=== PATIENT | female | born 1935 | race Two or more races ===

== ENCOUNTER 2025-01-24 20:53 | Inpatient (IN) | payer MEDICARE, OTHER ==
[~2025-01-24] VITALS: Ht 160 cm; Wt 69.5 kg
--- NOTE | 2025-01-24 21:32 | ECG ---
[facility] Test Date: 2025-01-24 Test Time: 21:18:43 Pat Name: MARJORIE VARGAS Department: [facility] ED Patient ID: [facility]-[id number] Room: 0237T Gender: F Dolly Pusher: CLARK : 1935 Requested By: KIRAN HICKS Order Number: [id number] Reading MD: Avinash Pritchard Measurements Intervals [place] Rate: 56 P: 0 NC: 0 QRS: 34 QRSD: 208 T: 74 QT: 413 QTc: 399 Interpretive Statements Atrial fibrillation Left bundle branch block Electronically Signed On 01-30-2025 10:07:04 PST by Avinash Pritchard Please click the below link to view image of tracing.
--- NOTE | 2025-01-24 21:35 | ED.PDOC ---
HPI (NEURO) HPI Comments 89-year-old female brought in by ambulance from [facility] after she had a near syncopal episode. Patient complains of some generalized weakness but otherwise no other complaints. Chief Complaint: General Weakness Time Seen by MD: 21:16 Information Source: Patient, Emergency Med Personnel Mode of Arrival: EMS Severity: Moderate, Severe Timing: Hours Duration: Since onset Past Medical History PAST MEDICAL HISTORY: AFIB, CVA Social History Smoker: Non-Smoker Alcohol: Denies ETOH Use Drugs: Denies Drug Use Constitutional: reports: fatigue, weakness Cardiovascular: reports: syncope All Other Systems: Reviewed and Negative Physical Exam Exam Comments Elderly General Appearance: Mild Distress HEENT: Normal ENT Inspection, Pharynx Normal, TMs Normal Neck: Full Range of Motion, Non-Tender, Normal, Normal Inspection Respiratory: Chest Non-Tender, Lungs Clear, No Accessory Muscle Use, No Respiratory Distress, Normal Breath Sounds Cardiovascular: Other (Irregularly irregular rhythm) Breast Exam: Deferred Gastrointestinal: No Organomegaly, Non Tender, No Pulsatile Mass, Normal Bowel Sounds, Soft Genitalia: Deferred Pelvic: Deferred Rectal: Deferred Extremities: No calf tenderness, Normal capillary refill, Normal inspection, Normal range of motion, Non-tender, No pedal edema Musculoskeletal : Apperance: Normal Neurologic: Alert, inspector hairspring truing II-XII nml as Tested, No Motor Deficits, Normal Affect, Normal Mood, No Sensory Deficits Cerebellar Function: Normal Reflexes: Normal Skin: Dry, Normal Color, Warm Lymphatic: No Adenopathy EKG EKG : Cardiac Rhythm: Aflutter Was a procedure done? Was a procedure done?: No Differential Diagnosis (SZ) Seizure: Psychogenic Seizure, Alcohol Withdrawl, Anticonvulsant Withdrawl, Closed Head Injury, CVA/TIA, Drug Ingestion, Hypocalcemia, Hypoglycemia, Hyponatremia, Hypoxemia, Idiopathic, Mass Lesion, Syncope, Encephalopathy, Other X-Ray, Labs, Meds, VS Vital Signs Date Time Temp Pulse Resp B/P (MAP) Pulse Ox O2 Delivery O2 Flow Rate FiO2 01/24/25 21:18 56 01/24/25 21:00 98.7 70 20 175/75 97 98.7 Lab Test 01/24/25 22:45 01/24/25 21:55 01/24/25 21:53 Range/Units Troponin I High Sensitivity Pending 71 *H </=34 ng/L Urine Color Pending Urine Clarity Pending Urine pH Pending Urine Specific [place] Pending Urine Protein Pending Urine Ketones Pending Urine Blood Pending Urine Nitrite Pending Urine Bilirubin Pending Urine Urobilinogen Pending Urine Leukocyte Esterase Pending Urine RBC Pending Urine Microscopic WBC Pending Urine Squamous Epithelial Cells Pending Urine Bacteria Pending Urine Glucose Pending White Blood Count 9.4 4.4-10.8 10^3/uL Red Blood Count 4.39 4.0-5.20 10^6/uL Hemoglobin 14.0 12.2-16.2 g/dL Hematocrit 40.8 36.0-46.0 % Mean Corpuscular Volume 92.9 80.0-100.0 fL Mean Corpuscular Hemoglobin 31.9 28.0-32.0 pg Mean Corpuscular Hemoglobin Concent 34.4 32.0-36.0 g/dL Red Cell Distribution Width 13.2 11.8-14.3 % Platelet Count 189 140-450 10^3/uL Mean Platelet Volume 9.3 6.9-10.8 fL Neutrophils (%) (Auto) 64.8 37.0-80.0 % Lymphocytes (%) (Auto) 23.8 10.0-50.0 % Monocytes (%) (Auto) 6.7 0.0-12.0 % Eosinophils (%) (Auto) 3.6 0.0-7.0 % Basophils (%) (Auto) 1.1 0.0-2.0 % Neutrophils # (Auto) 6.1 1.6-8.6 10 ^3/uL Lymphocytes # (Auto) 2.2 0.4-5.4 10 ^3/uL Monocytes # (Auto) 0.6 0-1.3 10 ^3/uL Eosinophils # (Auto) 0.3 0-0.8 10 ^3/uL Basophils # (Auto) 0.1 0-0.2 10 ^3/uL Nucleated Red Blood Cells 0.0 % Sodium Level 139 136-145 mmol/L Potassium Level 4.3 3.5-5.1 mmol/L Chloride Level 103 98-107 mmol/L Carbon Dioxide Level 27 20-31 mmol/L Anion Gap 9 5-15 Blood Urea Nitrogen 13 9-23 mg/dL Creatinine 0.81 0.550-1.02 mg/dL Glomerular Filtration Rate Calc 70 >90 mL/min BUN/Creatinine Ratio 16.0 10.0-20.0 Serum Glucose 101 74-106 mg/dL Calcium Level 9.4 8.7-10.4 mg/dL Magnesium Level 2.2 1.6-2.6 mg/dL Total Bilirubin 0.4 0.2-1.0 mg/dL Aspartate Amino Transferase (AST) 17 13-40 U/L Alanine Aminotransferase (ALT) 13 7-40 U/L Alkaline Phosphatase 85 46-116 U/L B-Type Natriuretic Peptide 21.84 0-100 pg/mL Total Protein 7.3 5.7-8.2 g/dL Albumin 4.5 3.2-4.8 g/dL Time of 1ST Reevaluation: 21:34 Reevaluation 1ST: Unchanged Patient Education/Counseling: Diagnosis, Treatment Family Education/Counseling: No Family Present Departure 1 Departure Time of Disposition: 23:13 Impression: Primary Impression: Syncope Additional Impression: Atrial flutter Disposition: ADMITTED INPATIENT Admit to: Tele Condition: Guarded Comments 89-year-old female had a brief syncopal episode while at [facility]. Her EKG shows what looks like atrial flutter with a controlled rate. P waves are quite impr essively large. It is a strange looking EKG and I think the patient should be on a oracle dba and possibly get an echo and further cardiac workup. Critical Care Note Critical Care Time?: Yes (35 min-critical care time only) Critical care comment: Total critical care time: Approximately 36 minutes Due to a high probability of clinically significant, life threatening deterioration, the patient required my highest level of preparedness to intervene emergently and I personally spent this critical care time directly and personally managing the patient. This critical care time included obtaining a history; examining the patient; pulse oximetry; ordering and review of studies; arranging urgent treatment with development of a management plan; evaluation of patient's response to treatment; frequent reassessment; and, discussions with other providers. This critical care time was performed to assess and manage the high probability of imminent, life-threatening deterioration that could result in multi-organ failure. It was exclusive of separately billable procedures and treating other p atients. Stability Stability form required: No Heart Score Heart Score: Heart Score Response (Comments) Value History Slightly Suspicious 0 EKG Repolarization Disturb 1 Age >65 2 Risk Factors 1 or 2 risk factors 1 Troponin Normal limit 0 Total 4 KIRAN HICKS MD Jan 24, 2025 21:35
--- NOTE | 2025-01-24 21:57 | DVH ---
EXAM: XY CHEST PORTABLE HISTORY: sob TECHNIQUE: 1 view of the chest COMPARISON: None FINDINGS/IMPRESSION: LUNGS: No pleural effusion, consolidation, or pneumothorax. MEDIASTINUM: Unremarkable. BONES: No acute osseous abnormality. OTHER: None.
[2025-01-24 22:12] LABS: Hematocrit 40.8 % (36.0-46.0); Hemoglobin 14.0 g/dL (12.2-16.2); Mean Corpuscular Hemoglobin 31.9 pg (28.0-32.0); Mean Corpuscular Volume 92.9 fL (80.0-100.0); Nucleated Red Blood Cells % 0.0 %
--- NOTE | 2025-01-24 22:17 | DVH ---
CLINICAL HISTORY: syncope weakness TECHNIQUE: Helical imaging carried out from skull base to vertex without intravenous contrast. This exam was performed according to our departmental dose optimization program. Up-to-date CT equipment and radiation dose reduction techniques are utilized as appropriate. CTDIVol: 51.05 mGy DLP: 755.91 mGy-cm WID: COMPARISON: None FINDINGS: Mild cerebral volume loss with concordant prominence of the subarachnoid spaces and ventricles. There is no midline shift or mass effect. The ledbetter white matter interfaces are maintained. The basal cisterns are patent. There is no evidence of acute intracranial hemorrhage or extra-axial fluid collection. The mastoid air cells and visualized paranasal sinuses are well-aerated. IMPRESSION: 1. No acute intracranial abnormality.
[2025-01-24 22:28] LABS: Alanine Aminotransferase 13 U/L (7-40); Albumin 4.5 g/dL (3.2-4.8); Alkaline Phosphatase 85 U/L (46-116); Anion Gap 9 (5-15); BUN/Creatinine Ratio 16.0 (10.0-20.0); Bilirubin, Total 0.4 mg/dL (0.2-1.0); Blood Urea Nitrogen 13 mg/dL (9-23); Calcium 9.4 mg/dL (8.7-10.4); Carbon Dioxide 27 mmol/L (20-31); Chloride 103 mmol/L (98-107); Glucose 101 mg/dL (74-106); Magnesium 2.2 mg/dL (1.6-2.6); Potassium 4.3 mmol/L (3.5-5.1); Sodium 139 mmol/L (136-145); Total Protein 7.3 g/dL (5.7-8.2)
[2025-01-24 23:26] LABS: Urine Protein, UAD Negative (Negative)
[2025-01-25] VITALS (14 sets, daily range): BP systolic 114–151; BP diastolic 44–76; PULSE 49–78; RESP 11–18; TEMP 96.9–98.2; O2SAT 91–97
[2025-01-25] MEDS ORDERED: ONDANSETRON HCL 4 MG/2 ML VIAL IV PRN (00:30)
[2025-01-25] MEDS ORDERED: HEPARIN SODIUM (PORCINE) 5000 UNITS/ML 1ML VIAL IV ONE (00:30)
[2025-01-25] MEDS ORDERED: HEPARIN DRIP/D5W 100UNITS/ML 250 ML IV SCH (00:30)
--- NOTE | 2025-01-25 00:33 | ECG ---
[facility] Test Date: 2025-01-25 Test Time: 00:31:46 Pat Name: MARJORIE VARGAS Department: [facility] ED Patient ID: [facility]-[id number] Room: 0237T Gender: F Cvicu Rn: CLARK : 1935 Requested By: KIRAN HICKS Order Number: [id number] Reading MD: Avinash Pritchard Measurements Intervals [place] Rate: 56 P: 67 DE: 191 QRS: 59 QRSD: 92 T: -32 QT: 391 QTc: 378 Interpretive Statements Sinus rhythm Borderline repolarization abnormality Borderline ST elevation, lateral leads Electronically Signed On 01-30-2025 10:07:23 PST by Avinash Pritchard Please click the below link to view image of tracing.
--- NOTE | 2025-01-25 01:11 | DVHHPRES ---
History of Present Illness Resident Creating Document: EDURAD KOTHARI RESIDENT History of Present Illness 89-year-old female with a PMH of hypothyroidism, hyperlipidemia has come to the ER with chief complaints of dizziness. Patient reports that she was at [employer] sitting down today when she suddenly felt lightheaded, dizzy and like she would pass out. She reports she saw bright lights in her head began to hurt starting from the temporal region slowly moving back to the occiput and neck. She rates the pain as 4/10, dull, with no relieving or aggravating factors and has been constant throughout the day. She denies any nausea, vomiting, fever, chills, palpitations, chest pain or shortness of breath. On inquiry, she reports she has had a similar episode 3 months ago when she was in a convenience store and she drank water which helped back then. Today she also reports of feeling emotionally distressed as it is the day anniversary of her son who 7 years ago. Patient has also begun herbal medication 2 weeks ago for hyperlipidemia, but can not recall the names of it. On admission her blood pressure was 175/75, HR 53, temp 98.7, SpO2 97 in room air, RR 16. CT head and chest x-ray are normal, UA is negative and tropes are uptrending 71, 276. She denies any chest pain. We are admitting her for further workup and management. PMH: Hypothyroidism, hyperlipidemia PSH: hysterectomy Family history: Reviewed, noncontributory to the management of this case Social history: Patient lives with . Denies smoking, alcohol or illicit drug abuse Allergies: None PCP: code status: Full code Review of Systems Constitutional: No: Fever, Chills, Sweats, Weakness, Malaise, Other Eyes: No: Pain, Vision change, Conjunctivae inflammation, Eyelid inflammation, Other, Redness ENT: No: Ear pain, Ear discharge, Nose pain, Nose discharge, Nose congestion, Mouth pain, Mouth swelling, Throat pain, Throat swelling, Other Respiratory: No: Cough, Dry, Shortness of breath, SOB with excertion, Wheezing, Hemoptysis, Pleuritic Pain, Sputum, Wheezing, Other Cardiovascular: Lt Headedness; No: Chest Pain, Palpitations, Orthopnea, Paroxysmal Noc. Dyspnea, Edema, Other Gastrointestinal: No: Nausea, Vomiting, Abdominal Pain, Diarrhea, Constipation, Melena, Hematochezia, Other Genitourinary: No Dysuria, No Frequency, No Incontinence, No Hematuria, No Retention, No Other Musculoskeletal: No: other, neck pain, shoulder pain, arm pain, back pain, hand pain, leg pain, foot pain Skin: No: Rash, Lesions, Jaundice, Bruising, Other Neurological: No: Weakness, Numbness, Incoordination, Change in speech, Confusion, Seizures, Other Allergies: Coded Allergies: NO KNOWN ALLERGIES (Unverified , 01/24/25) Medications Current Medications Medications Dose Ordered Sig/Kiet Route Start Time Stop Time Status Last Admin Dose Admin Ondansetron HCl 4 mg Q4HP PRN IV 01/25/25 00:30 Acetaminophen 650 mg Q6HP PRN PO 01/25/25 00:30 Levothyroxine Sodium 50 mcg QAM@0600 PO 01/25/25 06:00 Pantoprazole Sodium 40 mg DAILY PO 01/25/25 10:00 Heparin Sodium/ Dextrose 250 ml @ 8.388 mls/ hr Q24H IV 01/25/25 00:30 UNV Atorvastatin Calcium 40 mg HS PO 01/25/25 22:00 Aspirin 81 mg DAILY PO 01/25/25 10:00 Exam Vital Signs Vital Signs Date Time Temp Pulse Resp B/P (MAP) Pulse Ox O2 Delivery O2 Flow Rate FiO2 01/25/25 00:31 56 01/24/25 23:54 Room Air* 0 21 01/24/25 23:23 98.5 16 146/57 (86) 97 98.5 Exam Pt is lying on bed General Appearance: Alert, Oriented X3, Cooperative, slightly emotionally distressed HEENT: Atraumatic, Mucous membranes moist/pink Respiratory: Clear to auscultation, Normal air movement, No added sounds Cardiovascular: Regular rate, Normal S1, Normal S2, No murmurs Abdominal: Active bowel sounds, Soft, no distention, no tenderness Extremities: No edema, Normal pulses, No tenderness/swelling Skin: No Significant rash, except past surgical scars Neuro: Normal speech, sensorimotor deficits none Psych/Mental Status: Mental status NL, Mood NL Nurse was there as copy room technician during examination Labs/Xrays Labs Test 01/25/25 00:20 01/24/25 21:55 01/24/25 21:53 Range/Units Urine Color Colorless Yellow Urine Clarity Clear Clear Urine pH 6.0 5.0-9.0 Urine Specific [place] 1.006 1.001-1.035 Urine Protein Negative Negative Urine Ketones Negative Negative Urine Blood Negative Negative /uL Urine Nitrite Negative Negative Urine Bilirubin Negative Negative Urine Urobilinogen Normal Negative mg/dL Urine Leukocyte Esterase Negative Negative /uL Urine RBC None seen 0 - 4 /hpf Urine Microscopic WBC < 1 0-5 /HPF Urine Squamous Epithelial Cells Few <5 /hpf Urine Bacteria None seen None Seen /hpf Urine Glucose Normal Normal mg/dL White Blood Count 9.4 4.4-10.8 10^3/uL Red Blood Count 4.39 4.0-5.20 10^6/uL Hemoglobin 14.0 12.2-16.2 g/dL Hematocrit 40.8 36.0-46.0 % Mean Corpuscular Volume 92.9 80.0-100.0 fL Mean Corpuscular Hemoglobin 31.9 28.0-32.0 pg Mean Corpuscular Hemoglobin Concent 34.4 32.0-36.0 g/dL Red Cell Distribution Width 13.2 11.8-14.3 % Platelet Count 189 140-450 10^3/uL Mean Platelet Volume 9.3 6.9-10.8 fL Neutrophils (%) (Auto) 64.8 37.0-80.0 % Lymphocytes (%) (Auto) 23.8 10.0-50.0 % Monocytes (%) (Auto) 6.7 0.0-12.0 % Eosinophils (%) (Auto) 3.6 0.0-7.0 % Basophils (%) (Auto) 1.1 0.0-2.0 % Neutrophils # (Auto) 6.1 1.6-8.6 10 ^3/uL Lymphocytes # (Auto) 2.2 0.4-5.4 10 ^3/uL Monocytes # (Auto) 0.6 0-1.3 10 ^3/uL Eosinophils # (Auto) 0.3 0-0.8 10 ^3/uL Basophils # (Auto) 0.1 0-0.2 10 ^3/uL Nucleated Red Blood Cells 0.0 % Sodium Level 139 136-145 mmol/L Potassium Level 4.3 3.5-5.1 mmol/L Chloride Level 103 98-107 mmol/L Carbon Dioxide Level 27 20-31 mmol/L Anion Gap 9 5-15 Blood Urea Nitrogen 13 9-23 mg/dL Creatinine 0.81 0.550-1.02 mg/dL Glomerular Filtration Rate Calc 70 >90 mL/min BUN/Creatinine Ratio 16.0 10.0-20.0 Serum Glucose 101 74-106 mg/dL Calcium Level 9.4 8.7-10.4 mg/dL Magnesium Level 2.2 1.6-2.6 mg/dL Total Bilirubin 0.4 0.2-1.0 mg/dL Aspartate Amino Transferase (AST) 17 13-40 U/L Alanine Aminotransferase (ALT) 13 7-40 U/L Alkaline Phosphatase 85 46-116 U/L B-Type Natriuretic Peptide 21.84 0-100 pg/mL Total Protein 7.3 5.7-8.2 g/dL Albumin 4.5 3.2-4.8 g/dL SEPSIS Sepsis Screen Date sepsis recognized/suspect: Jan 24, 2025 Time Sepsis recognized/suspect: 2104 Recent Procedure: No On Antibiotic Therapy: No Respiratory Rate >20: No Heart Rate >90: No Temp<36 C (96.8 F) or >38.3 C: No SBP <90 or MAP <65 mmHG: No New Acute Mental Status Change: No Is the patient on CPAP, BIPAP,: No Physician Orders Chest Portable (01/24/25 21:30) Emergency Department Rn (01/24/25 21:30) Head Without Contrast (01/24/25 21:39) Troponin-I Hs (01/25/25 00:22) Electrocardigram (01/25/25 01:28) Electrocardigram (01/25/25 03:28) Troponin-I Hs (01/25/25 01:29) Troponin-I Hs (01/25/25 03:29) Admit (01/25/25 00:18) Code Status (01/25/25 00:18) Ondansetron Hcl (Zofran) (01/25/25 00:30) Complete Blood Count (01/25/25 04:00) Comprehensive Metabolic Panel (01/25/25 04:00) Cardiac Diet-2gna,Lofat,Lochol (01/25/25 Breakfast) Condition: Unstable (01/25/25 00:18) Acetaminophen Tablet (Tylenol Tablet) (01/25/25 00:30) Echo 2d Mode Cardiac Dop (01/25/25 00:18) Carotid Duplx W Color Dop (01/25/25 00:18) Orthostatic Vital Signs (01/25/25 ) Levothyroxine Tablet (Synthroid Tablet) (01/25/25 06:00) Pantoprazole Tablet (Protonix Tablet) (01/25/25 10:00) Thyroid Stimulating Hormone (01/25/25 00:18) Sodium Chloride 0.9% (01/25/25 00:30) Platelet Monitoring (01/25/25 00:18) Heparin Per Standardized Proce (01/25/25 00:18) Discontinue All Im Injections (01/25/25 00:18) Heparin Sodium (Porcine) (01/25/25 00:30) Heparin Drip/D5w 100units/Ml (01/25/25 00:30) Stat Ekg For Chest Pain (01/25/25 00:18) Atorvastatin (Lipitor) (01/25/25 22:00) Aspirin Tablet (01/25/25 10:00) Vital Signs Date Time Temp Pulse Resp B/P (MAP) Pulse Ox O2 Delivery O2 Flow Rate FiO2 01/25/25 00:31 56 01/25/25 00:00 66 01/24/25 23:54 Room Air* 0 21 01/24/25 23:23 98.5 53 16 146/57 (86) 97 98.5 01/24/25 21:18 56 01/24/25 21:00 98.7 70 20 175/75 97 98.7 Laboratory Tests Test 01/24/25 21:53 White Blood Count 9.4 10^3/uL (4.4-10.8) Medications Medications Dose Ordered Sig/Kiet Route Start Time Stop Time Status Last Admin Dose Admin Aspirin 162 mg ONCE ONCE PO 01/24/25 23:30 01/24/25 23:31 DC 01/24/25 23:30 162 MG Assessment/Plan Assessment/Plan #Autonomic dysfunction #Presyncope - chest x-ray normal - head CT shows no acute intracranial abnormality - orthostatic vitals on: laying 134/47(HR 51), sitting 138/57(HR 59), standing 143/47(HR 57) - carotid Doppler - echo - IV ondansetron 4 mg q.4 PRN - acetaminophen 650 mg q.6 PRN #Hypothyroidism -continue home medication levothyroxine 50 mcg daily #Atrial flutter #NSTEMI , likely type 1 - Tropes up trending 71>276>1175>2189> 2717 - EKG shows atrial flutter - tele monitor - cardiology consult for up trending trops -As seen on EKG -aspirin 162 mg p.o. once and 81 mg daily -PT 10.4, INR 0.98, APTT 28.2 -IV heparin drip #Hyperlipidemia -atorvastatin 40 mg daily HS -stop herbal medication GI prophylaxis: Protonix 40 mg p.o. daily DVT prophylaxis: IV heparin drip Diet: cardiac diet Goals of care discussed with the patient for more than 27 minutes: Full code status Case discussed with , patient Plan discussed with: Patient, Spouse, Other My Orders Orders - EDUARD KOTHARI RESIDENT Procedure Category Date Status Time Admit ADMIT 01/25/25 Transmitted 00:18 Code Status CODE 01/25/25 Transmitted 00:18 Ondansetron Hcl PHA 01/25/25 In Process (Zofran) 00:30 Complete Blood Count LAB 01/25/25 Logged 04:00 Comprehensive LAB 01/25/25 Logged Metabolic Panel 04:00 Cardiac DIET 01/25/25 Transmitted Diet-2gna,Lofat,Lochol Breakfast Condition: Unstable MAG 01/25/25 In Process 00:18 Acetaminophen Tablet PHA 01/25/25 In Process (Tylenol Tablet) 00:30 Echo 2d Mode Cardiac US 01/25/25 Logged DOP 00:18 Carotid Duplx W Color US 01/25/25 Logged DOP 00:18 Orthostatic Vital ED NURSING 01/25/25 Transmitted Signs Levothyroxine Tablet PHA 01/25/25 In Process (Synthroid Tablet) 06:00 Pantoprazole Tablet PHA 01/25/25 In Process (Protonix Tablet) 10:00 Thyroid Stimulating LAB 01/25/25 Logged Hormone 00:18 Sodium Chloride 0.9% PHA 01/25/25 In Process 00:30 Platelet Monitoring [facility] 01/25/25 In Process 00:18 Heparin Per [facility] 01/25/25 In Process Standardized Proce 00:18 Discontinue All Im MAG 01/25/25 In Process Injections 00:18 Heparin Sodium PHA 01/25/25 Pending (Porcine) 00:30 Heparin Drip/D5w PHA 01/25/25 Pending 100units/Ml 00:30 Stat Ekg For Chest MAG 01/25/25 In Process Pain 00:18 Atorvastatin (Lipitor) PHA 01/25/25 In Process 22:00 Aspirin Tablet PHA 01/25/25 In Process 10:00 Date of Service: Jan 25, 2025 Billing Provider: MARIA FERNANDA BETANCOURT MD Common Visit Codes: 86269-PPTOGEO INP/OBS CARE (HIGH) Secondary Visit Codes: 20868-CBCNNRQS CARE PLAN 30 MINUTES EDUARD KOTHARI RESIDENT Jan 25, 2025 01:11
[2025-01-25] MEDS: ATORVASTATIN 20 MG TAB PO ONE (01:54)
[2025-01-25] MEDS: SODIUM CHLORIDE 0.9% 500 ML IV ONE (01:55)
[2025-01-25 02:43] LABS: INR 0.98 (0.9-1.15); Partial Thromboplastin Time 28.2 SEC (24.5-34.5); Prothrombin Time 10.4 sec (9.3-11.8)
[2025-01-25] MEDS ORDERED: LEVO25TA2 PO (02:43)
[2025-01-25] MEDS ORDERED: LANS15CA25 PO (02:45)
[2025-01-25] MEDS: HEPARIN SODIUM (PORCINE) 5000 UNITS/ML 1ML VIAL IV ONE (03:26)
[2025-01-25] MEDS: HEPARIN DRIP/D5W 100UNITS/ML 250 ML IV SCH ×2 (03:27→11:10)
[2025-01-25 04:06] LABS: Alanine Aminotransferase 13 U/L (7-40); Albumin 4.1 g/dL (3.2-4.8); Alkaline Phosphatase 73 U/L (46-116); Anion Gap 11 (5-15); BUN/Creatinine Ratio 19.1 (10.0-20.0); Blood Urea Nitrogen 13 mg/dL (9-23); Calcium 9.2 mg/dL (8.7-10.4); Carbon Dioxide 24 mmol/L (20-31); Chloride 104 mmol/L (98-107); Glucose 90 mg/dL (74-106); Potassium 4.1 mmol/L (3.5-5.1); Sodium 139 mmol/L (136-145); Total Protein 6.3 g/dL (5.7-8.2)
[2025-01-25 04:07] LABS: Bilirubin, Total 0.6 mg/dL (0.2-1.0)
[2025-01-25] MEDS: LEVOTHYROXINE SODIUM 50 MCG TAB PO SCH (05:40)
--- NOTE | 2025-01-25 06:15 | ECG ---
[facility] Test Date: 2025-01-25 Test Time: 02:15:26 Pat Name: MARJORIE VARGAS Department: [facility] ED Patient ID: [facility]-[id number] Room: 0237T A Gender: F Lotus Notes Administrator: CLARK : 1935 Requested By: KIRAN HICKS Order Number: [id number] Reading MD: Avinash Pritchard Measurements Intervals [place] Rate: 51 P: 0 AL: 0 QRS: 61 QRSD: 102 T: -47 QT: 435 QTc: 401 Interpretive Statements Atrial fibrillation Nonspecific repol abnormality, diffuse leads Borderline ST elevation, lateral leads Electronically Signed On 01-30-2025 10:07:54 PST by Avinash Pritchard Please click the below link to view image of tracing.
[2025-01-25 08:06] LABS: Hematocrit 41.4 % (36.0-46.0); Hemoglobin 13.6 g/dL (12.2-16.2); Mean Corpuscular Hemoglobin 31.5 pg (28.0-32.0); Mean Corpuscular Volume 95.9 fL (80.0-100.0); Nucleated Red Blood Cells % 0.0 %
--- NOTE | 2025-01-25 09:01 | DVH ---
Carotid Duplex Clinical History: dizziness Comparison: CT HEAD WITHOUT CONTRAST on DOS: 01/24/25 Technique: Duplex Doppler evaluation of the extracranial carotid and vertebral arteries including color Doppler and spectral/pulsed waveform analysis was performed. Findings: RIGHT SIDE: The peak systolic velocities are 126 cm/s in the CCA, 94 cm/s in the ICA. The ICA/CCA ratio is 0.7. The external carotid artery is patent with peak systolic velocity of 81 cm/s proximally. The subclavian artery is patent with peak systolic velocity of na cm/s. There is appropriate antegrade flow in the right vertebral artery. LEFT SIDE: The peak systolic velocities are 67 cm/s in the CCA, 116 cm/s in the ICA. The ICA/CCA ratio is 1.7. The external carotid artery is patent with peak systolic velocity of 116 cm/s proximally. The subclavian artery is patent with peak systolic velocity of na cm/s. There is appropriate antegrade flow in the left vertebral artery. IMPRESSION: No hemodynamically significant stenosis noted in the right carotid system. No hemodynamically significant stenosis noted in the left carotid system. Reference: Radiology 2003; 229:340-346 Normal ICA PSV is <125 cm/sec and no plaque or intimal thickening is visible sonographically additional criteria include ICA/CCA PSV ratio <2.0 and ICA EDV <40 cm/sec <50% ICA stenosis ICA PSV is <125 cm/sec and plaque or intimal thickening is visible sonographically additional criteria include ICA/CCA PSV ratio <2.0 and ICA EDV <40 cm/sec 50-69% ICA stenosis ICA PSV is 125-230 cm/sec and plaque is visible sonographically additional criteria include ICA/CCA PSV ratio of 2.0-4.0 and ICA EDV of 40-100 cm/sec 70% ICA stenosis but less than near occlusion ICA PSV is >230 cm/sec and visible plaque and luminal narrowing are seen at ledbetter-scale and color Doppler ultrasound (the higher the Doppler parameters lie above the threshold of 230 cm/sec, the greater the likelihood of severe disease) additional criteria include ICA/CCA PSV ratio >4 and ICA EDV >100 cm/sec
[2025-01-25] MEDS: PANTOPRAZOLE 40 MG TAB PO SCH (09:17)
[2025-01-25 09:20] LABS: Triglycerides 107 mg/dL (< 150)
[2025-01-25 09:23] LABS: Cholesterol 205 mg/dL (< 200); HDL Cholesterol 65 mg/dL (40-59)
[2025-01-25 09:28] LABS: INR 1.03 (0.9-1.15); Prothrombin Time 10.9 sec (9.3-11.8)
--- NOTE | 2025-01-25 09:36 | DVHINCON2 ---
Date Seen: Jan 25, 2025 Referring Physician Reason for Consultation NSTEMI History of Present Illness This is an 89-year-old female with a past medical history significant for hypothyroidism, hyperlipidemia, and remote ischemic stroke (20 years ago), who presented to the ED with dizziness and mild chest pressure. The patient reports that symptoms began around 8 p.m. yesterday when she suddenly felt lightheaded and as though she might faint. She also described seeing flashing lights and experiencing mild occipital headache. Because the dizziness persisted, her called EMS. While en route, she developed mild substernal chest pressure described as a non-radiating, pressure-like sensation without diaphoresis, nausea, or dyspnea. She attributed her symptoms partly to emotional distress, as this week santacruz the anniversary of her sons . In the ED, her BP was 175/75 mmHg. EKG showed new T-wave inversions in V5V6 and ST depressions in leads II and III. Serial high-sensitivity troponins were elevated and uptrendin ? 200 ? 1000 ? 2000 ? 2000 ng/L. Case discussed with Dr. King (Cardiology), who recommended left heart catheterization for further evaluation. Risks and benefits were discussed with the patient and family ( and son), and they agreed to proceed. Past Medical History: Hypothyroidism Hyperlipidemia Ischemic stroke (20 years ago) PSH: hysterectomy Family history: Reviewed, noncontributory to the management of this case Social history: Patient lives with . Denies smoking, alcohol or illicit drug abuse Allergies: None PCP: code status: Full code Family History: Patient reports no known family medical history. Allergies: Coded Allergies: NO KNOWN ALLERGIES (Unverified , 01/24/25) Home Meds Reported Medications Lansoprazole (Lansoprazole) 15 Mg Cap, 15 MG PO, CAP 01/25/25 Levothyroxine Sodium (Synthroid) 25 Mcg Tab, 1 TAB PO DAILY, #30 TAB 5 Refills 01/25/25 Current Medications Current Medications Medications (Trade) Dose Ordered Sig/Kiet Route PRN Reason Start Time Stop Time Status Last Admin Ondansetron HCl (Zofran) 4 mg Q4HP PRN IV NAUSEA / VOMITING 01/25/25 00:30 Acetaminophen (Tylenol Tablet) 650 mg Q6HP PRN PO PAIN SCALE 1-3 OR TEMP>100.4 01/25/25 00:30 Levothyroxine Sodium (Synthroid Tablet) 50 mcg QAM@0600 PO 01/25/25 06:00 01/25/25 05:40 Pantoprazole Sodium (Protonix Tablet) 40 mg DAILY PO 01/25/25 10:00 Heparin Sodium/ Dextrose 250 ml @ 8.388 mls/ hr Q24H IV 01/25/25 00:30 UNV Atorvastatin Calcium (Lipitor) 40 mg HS PO 01/25/25 22:00 Aspirin 81 mg DAILY PO 01/25/25 10:00 Heparin Sodium/ Dextrose 250 ml @ 8 mls/hr Q24H IV 01/25/25 03:30 01/25/25 03:27 Review of Systems Constitutional: Denies fever, chills, weight loss. HEENT: Occipital headache, no visual loss. Cardiac: Mild chest pressure, no palpitations. Respiratory: Denies SOB or cough. GI: Denies nausea, vomiting, abdominal pain. Neuro: Dizziness, no weakness or speech changes. Psych: Emotional distress due to anniversary of sons . Vital Signs Vital Signs Date Time Temp Pulse Resp B/P (MAP) Pulse Ox O2 Delivery O2 Flow Rate FiO2 01/25/25 08:04 16 97 Room Air* 0 21 01/25/25 05:00 97.3 52 120/62 (81) 97.3 Physical Exam General: Elderly female, alert and oriented, in no acute distress. HEENT: Normocephalic, atraumatic. Cardiac: Regular rate and rhythm, no murmurs, rubs, or gallops. Respiratory: Clear to auscultation bilaterally. Abdomen: Soft, non-tender, non-distended. Extremities: No edema, pulses palpable. Neuro: No focal deficits. Labs/Diagnostic Data Labs Test 01/25/25 08:36 01/25/25 03:30 01/24/25 21:55 01/24/25 21:53 Range/Units Hemoglobin A1c 5.9 H <5.7 % A1C Troponin I High Sensitivity 2508 *H </=34 ng/L Triglycerides Level 107 < 150 mg/dL Cholesterol Level 205 H < 200 mg/dL LDL Cholesterol 131 H < 100 mg/dL HDL Cholesterol 65 H 40-59 mg/dL White Blood Count 10.0 4.4-10.8 10^3/uL Red Blood Count 4.32 4.0-5.20 10^6/uL Hemoglobin 13.6 12.2-16.2 g/dL Hematocrit 41.4 36.0-46.0 % Mean Corpuscular Volume 95.9 80.0-100.0 fL Mean Corpuscular Hemoglobin 31.5 28.0-32.0 pg Mean Corpuscular Hemoglobin Concent 32.8 32.0-36.0 g/dL Red Cell Distribution Width 13.0 11.8-14.3 % Platelet Count 168 140-450 10^3/uL Mean Platelet Volume 9.4 6.9-10.8 fL Neutrophils (%) (Auto) 69.4 37.0-80.0 % Lymphocytes (%) (Auto) 21.0 10.0-50.0 % Monocytes (%) (Auto) 7.0 0.0-12.0 % Eosinophils (%) (Auto) 2.2 0.0-7.0 % Basophils (%) (Auto) 0.4 0.0-2.0 % Neutrophils # (Auto) 6.9 1.6-8.6 10 ^3/uL Lymphocytes # (Auto) 2.1 0.4-5.4 10 ^3/uL Monocytes # (Auto) 0.7 0-1.3 10 ^3/uL Eosinophils # (Auto) 0.2 0-0.8 10 ^3/uL Basophils # (Auto) 0 0-0.2 10 ^3/uL Nucleated Red Blood Cells 0.0 % Sodium Level 139 136-145 mmol/L Potassium Level 4.1 3.5-5.1 mmol/L Chloride Level 104 98-107 mmol/L Carbon Dioxide Level 24 20-31 mmol/L Anion Gap 11 5-15 Blood Urea Nitrogen 13 9-23 mg/dL Creatinine 0.68 0.550-1.02 mg/dL Glomerular Filtration Rate Calc 84 >90 mL/min BUN/Creatinine Ratio 19.1 10.0-20.0 Serum Glucose 90 74-106 mg/dL Calcium Level 9.2 8.7-10.4 mg/dL Total Bilirubin 0.6 0.2-1.0 mg/dL Aspartate Amino Transferase (AST) 23 13-40 U/L Alanine Aminotransferase (ALT) 13 7-40 U/L Alkaline Phosphatase 73 46-116 U/L Total Protein 6.3 5.7-8.2 g/dL Albumin 4.1 3.2-4.8 g/dL Urine Color Colorless Yellow Urine Clarity Clear Clear Urine pH 6.0 5.0-9.0 Urine Specific [place] 1.006 1.001-1.035 Urine Protein Negative Negative Urine Ketones Negative Negative Urine Blood Negative Negative /uL Urine Nitrite Negative Negative Urine Bilirubin Negative Negative Urine Urobilinogen Normal Negative mg/dL Urine Leukocyte Esterase Negative Negative /uL Urine RBC None seen 0 - 4 /hpf Urine Microscopic WBC < 1 0-5 /HPF Urine Squamous Epithelial Cells Few <5 /hpf Urine Bacteria None seen None Seen /hpf Urine Glucose Normal Normal mg/dL Magnesium Level 2.2 1.6-2.6 mg/dL B-Type Natriuretic Peptide 21.84 0-100 pg/mL Assessment Assessment: 1. NSTEMI (Non-ST Elevation Myocardial Infarction) likely type 1 VT based on troponin trend and EKG changes. 2. Hypertension, uncontrolled. 3. Hyperlipidemia. 4. Hypothyroidism. 5. Emotional distress contributing to presentation. 6. 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 Plan: Proceed with left heart catheterization per cardiology. Continue heparin drip and continue ASA and high-intensity statin. Monitor on telemetry for arrhythmias. BP control with antihypertensives, target <140/90. Supportive care and emotional support for grief-related distress. Continue levothyroxine. Resume home meds as appropriate after reconciliation. Case discussed with Dr King Time spent on care 71 min Plan discussed with: Patient, Spouse, Son NYHA Physical activity limitations: Class1(None)absent sob, Date of Service: Jan 25, 2025 Billing Provider: LESLIE KING Sr., MD Cardiology Common Codes: 66198-VSFNKSGY CARE 30-74 MIN MARJORIE JOSEPH RESIDENT Jan 25, 2025 09:36
[2025-01-25 10:06] LABS: Partial Thromboplastin Time 80.5 SEC (24.5-34.5)
--- NOTE | 2025-01-25 10:39 | CONS ---
Pharmacy Clinical Information: Heparin Protocol aPTT reading 80.5 at 08:36 01/25/25 Change Heparin Drip to 600 units/hr or 6 ml/hr at 10:30 01/25/25 Next aPTT reading at 16:30 01/25/25 LYNNE Hale read back and confirmed Per RX Protocol NICA PRINCE PHARMACIST Jan 25, 2025 10:39
--- NOTE | 2025-01-25 13:09 | ECG ---
[facility] Test Date: 2025-01-25 Test Time: 06:42:33 Pat Name: MRAJORIE VARGAS Department: Respiratoy Room: 0237T A Gender: F Client Support Coordinator: Amira : 1935 Requested By: KIRAN HICKS Order Number: [id number] Reading MD: Avinash Pritchard Measurements Intervals [place] Rate: 69 P: 22 WI: 192 QRS: -10 QRSD: 104 T: 183 QT: 497 QTc: 533 Interpretive Statements Sinus rhythm Paired ventricular premature complexes Borderline low voltage, extremity leads Abnormal R-wave progression, early transition Abnormal T, consider ischemia, lateral leads Electronically Signed On 01-30-2025 11:03:52 PST by Avinash Pritchard Please click the below link to view image of tracing.
--- NOTE | 2025-01-25 13:09 | ECG ---
[facility] Test Date: 2025-01-25 Test Time: 06:44:43 Pat Name: MARJORIE VARGAS Department: Respiratoy Room: 0237T A Gender: F Home Comfort Advisor: Amira : 1935 Requested By: STEPHON POWELL Order Number: [id number] Reading MD: Avinash Pritchard Measurements Intervals [place] Rate: 51 P: 20 CT: 188 QRS: -15 QRSD: 88 T: 172 QT: 479 QTc: 442 Interpretive Statements Sinus rhythm Borderline left axis deviation Borderline low voltage, extremity leads Consider RVH or posterior infarct Abnormal T, consider ischemia, lateral leads Electronically Signed On 01-30-2025 11:03:54 PST by Avinash Pritchard Please click the below link to view image of tracing.
--- NOTE | 2025-01-25 16:17 | DVHPNRES ---
Progress Note Date Seen: Jan 25, 2025 Resident Creating Document: ADIN DOLAN RESIDENT Medical Necessity Reason Pt with a Central, PICC or Fol: No Subjective Review of Systems 89-year-old female with a PMH of hypothyroidism, hyperlipidemia has come to the ER with chief complaints of dizziness. Patient reports that she was at [employer] sitting down today when she suddenly felt lightheaded, dizzy and like she would pass out. She reports she saw bright lights in her head began to hurt starting from the temporal region slowly moving back to the occiput and neck. She rates the pain as 4/10, dull, with no relieving or aggravating factors and has been constant throughout the day. She denies any nausea, vomiting, fever, chills, palpitations, chest pain or shortness of breath. On inquiry, she reports she has had a similar episode 3 months ago when she was in a convenience store and she drank water which helped back then. Today she also reports of feeling emotionally distressed as it is the day anniversary of her son who 7 years ago. Patient has also begun herbal medication 2 weeks ago for hyperlipidemia, but can not recall the names of it. On admission her blood pressure was 175/75, HR 53, temp 98.7, SpO2 97 in room air, RR 16. CT head and chest x-ray are normal, UA is negative and tropes are uptrending 71, 276. She denies any chest pain. PMH: Hypothyroidism, hyperlipidemia PSH: hysterectomy Family history: Reviewed, noncontributory to the management of this case Social history: Patient lives with . Denies smoking, alcohol or illicit drug abuse Allergies: None PCP: code status: Full code CONSTITUTIONAL: Fever, night sweats, weight loss, Lymphadenopathy, ecchymoses, fatigue: Negative DERMATOLOGIC: Rash, New/growing/changing skin lesions: Negative HEENT: Vision change, eye pain, Rhinorrhea, sinus pain, epistaxis, dysphagia, odynophagia, globus sensation, Change in hearing, tinnitus, vertigo, otalgia, Dental problems, oral ulcers or lesions: : Negative ENDOCRINE: Weight change, heat or cold intolerance, tremor, insomnia, neck pain or swelling, Polyuria, polydipsia, polyphagia, Abnormal hair growth, change in nails: Negative CARDIOVASCULAR: palpitations, syncope, Edema, cyanosis, claudication, Orthopnea, paroxysmal nocturnal dyspnea: Negative, Complains of chest pain and lightheadedness PULMONARY: Shortness of breath, dyspnea with exertion, Cough, hemoptysis, wheezing, chest pain : Negative GI: Nausea, vomiting, diarrhea, melena, hematochezia, Change in appetite, abdominal pain, change in bowel habits or stools: Negative : Dysuria, frequency, urgency, Urinary incontinence, hematuria, foamy urine, nocturia, Change in libido, erectile dysfunction, Change in menses, dysmenorrhea, dyspaerunia, pelvic pain: : Negative MUSCULOSKELETAL: Joint swelling or pain, muscle pain, back pain: : Negative NEUROLOGIC: Headache, scotoma, Change in smell or taste, change in facial muscles, Muscle weakness, paresthesias, anesthesia, Ataxia, change in speech: Negative PSYCHIATRIC: Depression, anxiety, hallucinations, jody, suicidal/homicidal thoughts, Binging, purging: Negative Changes from previous H/P or p: No Changes Objective vital signs Vital Sign Date Time Temp Pulse Resp B/P (MAP) Pulse Ox O2 Delivery O2 Flow Rate FiO2 01/25/25 13:00 98.2 78 14 135/63 (87) 94 98.2 01/25/25 08:04 Room Air* 0 21 Total Intake and Output 01/24/25 01/24/25 01/25/25 15:00 23:00 07:00 Intake Total 0 ml Balance 0 ml medications Current Medications Medications Dose Ordered Sig/Kiet Route Start Time Stop Time Status Last Admin Dose Admin Ondansetron HCl 4 mg Q4HP PRN IV 01/25/25 00:30 Acetaminophen 650 mg Q6HP PRN PO 01/25/25 00:30 Levothyroxine Sodium 50 mcg QAM@0600 PO 01/25/25 06:00 01/25/25 05:40 50 MCG Pantoprazole Sodium 40 mg DAILY PO 01/25/25 10:00 01/25/25 09:45 40 MG Heparin Sodium/ Dextrose 250 ml @ 8.388 mls/ hr Q24H IV 01/25/25 00:30 UNV Atorvastatin Calcium 40 mg HS PO 01/25/25 22:00 Aspirin 81 mg DAILY PO 01/25/25 10:00 01/25/25 09:45 81 MG Heparin Sodium/ Dextrose 250 ml @ 6 mls/hr Q24H IV 01/25/25 10:30 01/25/25 11:10 6 MLS/HR Examination General Appearance: Alert, Oriented X3, Cooperative, slightly emotionally distressed HEENT: Atraumatic, Mucous membranes moist/pink Respiratory: Clear to auscultation, Normal air movement, No added sounds Cardiovascular: Regular rate, Normal S1, Normal S2, No murmurs Abdominal: Active bowel sounds, Soft, no distention, no tenderness Extremities: No edema, Normal pulses, No tenderness/swelling Skin: No Significant rash, except past surgical scars Neuro: Normal speech, sensorimotor deficits none Psych/Mental Status: Mental status NL, Mood NL laboratory and microbiology Laboratory Tests 01/25/25 03:30 Test 01/25/25 03:30 Range/Units Serum Glucose 90 74-106 mg/dL Labs and/or images reviewed: Labs reviewed by me, Image(s) reviewed by me Problem List/Assessment/Plan Problem List/Assessment/Plan #Autonomic dysfunction #Presyncope - chest x-ray normal - head CT shows no acute intracranial abnormality - orthostatic vitals on: laying 134/47(HR 51), sitting 138/57(HR 59), standing 143/47(HR 57) - carotid Doppler - echo - IV ondansetron 4 mg q.4 PRN - acetaminophen 650 mg q.6 PRN #Asymptomatic bradycardia: -HR in 50s lowest -continue telemetry -r/o sick sinus syndrome in elderly given presyncopy #Hypothyroidism -continue home medication levothyroxine 50 mcg daily, TSH wnl #NSTEMI , likely type 1 - Tropes up trending 71>276>1175>2189> 2717 - tele monitor - cardiology consult for up trending trops - pending oronary cath -As seen on EKG -aspirin 162 mg p.o. once and 81 mg daily -PT 10.4, INR 0.98, APTT 28.2 -IV heparin drip -appreciate cardiology input. #Hyperlipidemia -atorvastatin 40 mg daily HS -stop herbal medication -follow LFTs -target LDL<70, needs interval check. GI prophylaxis: Protonix 40 mg p.o. daily DVT prophylaxis: IV heparin drip Diet: cardiac diet Goals of care discussed with the patient for more than 27 minutes: Full code status Case discussed with Plan discussed with: Patient Date of Service: Jan 25, 2025 Billing Provider: MANAS GAMING MD Common Visit Codes: [id number] INP/OBS CARE(HIGH) ADIN DOLAN RESIDENT Jan 25, 2025 16:17 IRMA NICHOLS RESIDENT Jan 25, 2025 19:13 MANAS GAMING MD Jan 28, 2025 16:42
[2025-01-25] MEDS: SODIUM CHL 0.9% 0 ML ONE (16:47)
[2025-01-25] MEDS: fentaNYL CITRATE 100 MCG/2 ML VL ONE (16:47)
[2025-01-25] MEDS: ANGIOMAX 250 MG VIAL IV ONE (16:47)
[2025-01-25] MEDS: VERAPAMIL 2.5MG/ML INJ 2ML VIAL IV ONE (16:47)
[2025-01-25] MEDS: MIDAZOLAM HCL 2MG/2ML 2ml VIAL (1mg/ml) ONE (16:47)
[2025-01-25] MEDS: LIDOCAINE 2%HCL (LOCAL ANESTH.) INJ 20ML MDV ONE (16:47)
[2025-01-25] MEDS: IODIXANOL 320MG/ML 100ML BTL IV ONE (16:49)
[2025-01-25] MEDS: HEPARIN 1,000 UNITS/ml 1ML VIAL ONE (17:00)
[2025-01-25 18:50] LABS: INR 1.03 (0.9-1.15); Partial Thromboplastin Time 42.4 SEC (24.5-34.5); Prothrombin Time 10.9 sec (9.3-11.8)
--- NOTE | 2025-01-25 19:16 | DVHOP2 ---
Operative Report - 2 Report Details Date: 01/25/25 Preop Diagnosis: CAD Postop Diagnosis: Normal coronaries Surgeon: Leslie Pritchard MD Anesthesiologist: Conscious sedation Anesthesia: Mac, Local Consent: The patient was informed of the risks and benefits of the procedure. These include but are not limited to complications of anesthesia, postoperative infection, incomplete relief of symptoms, recurrence of symptoms, damage to blood vessels, nerves and tendons, deep venous thrombosis, pulmonary embolism and possible need for repeat surgery in the future. Complications: No complications Findings: Normal coronaries. Mild cardiomyopathy Indications for Surgery: Non ST-elevation myocardial infarction Name of Procedure Performed Left heart catheterization. Bilateral cine coronary angiography. Left ventriculography Procedure Details Procedure Details: Prior local anesthesia with 2% lidocaine to the right wrist and full informed consent obtained the patient was prepped and draped in usual fashion followed by placement of a six Korean sheath into the radial artery through which six Korean multipurpose catheter was used for ventriculography and cannulation both right and left coronary ostia without complications. Hemodynamics: Aortic blood pressure was 110/70. End-diastolic pressure was 12. There was no gradient across the aortic valve on pullback. Coronary anatomy the RCA is a large dominant vessel. It is normal in its proximal mid and distal segments. PDA and posterolateral branches are normal. Left main is large and normal. Left anterior descending is a large vessel it is normal in its proximal mid and distal segments. Diagonals and septals are normal. The circumflex is large with two obtuse marginals free of significant disease. Ventriculography in the PAUL projection shows an EF of about 40%. [id number] global hypokinesis. Impression: Normal left ventricular end-diastolic pressure at rest with decreased left ventricular function at about 40%. No coronary artery disease present. Recommendations: Medical therapy is warranted continue risk factor modification treat for heart failure with reduced ejection fraction Condition Good Disposition Still a Patient Date of Service: Jan 25, 2025 Billing Provider: LESLIE PRITCHARD Sr., MD Cardiology Common Codes: 43335-[id number] INP/OBS CARE (High) Cardiology Procedure Codes: 29937-NVAX HEART CATH W/INTRA INJ LESLIE PRITCHARD Sr., MD Jan 25, 2025 19:16
[2025-01-25] MEDS: ATORVASTATIN 20 MG TAB PO SCH (22:00)
[2025-01-26] VITALS (8 sets, daily range): BP systolic 102–147; BP diastolic 56–73; PULSE 47–61; RESP 15–19; TEMP 97.2–98; O2SAT 93–97
[2025-01-26 00:54] LABS: INR 1.02 (0.9-1.15); Partial Thromboplastin Time 44.8 SEC (24.5-34.5); Prothrombin Time 10.8 sec (9.3-11.8)
[2025-01-26] MEDS: HEPARIN DRIP/D5W 100UNITS/ML 250 ML IV SCH (01:15)
[2025-01-26 07:45] LABS: Hematocrit 39.6 % (36.0-46.0); Hemoglobin 13.5 g/dL (12.2-16.2); Mean Corpuscular Hemoglobin 31.6 pg (28.0-32.0); Mean Corpuscular Volume 92.5 fL (80.0-100.0); Nucleated Red Blood Cells % 0.1 %
[2025-01-26 08:11] LABS: INR 1.03 (0.9-1.15); Prothrombin Time 10.9 sec (9.3-11.8)
[2025-01-26 08:14] LABS: Partial Thromboplastin Time 74.4 SEC (24.5-34.5)
--- NOTE | 2025-01-26 08:27 | CONS ---
Pharmacy Clinical Information: HEPARIN DRIP, ACS PROTOCOL @0722 APTT 74.4 - NO BOLUS, NO CHANGE NEXT APTT DRAW SCHEDULED @1400 PER RX PROTOCOL CONFIRMED AND READ BACK WITH RN RISSA REYNA [facility] RESIDENT Jan 26, 2025 08:27
--- NOTE | 2025-01-26 09:15 | DVHPN2 ---
Consult Progress Note Date Seen: Jan 26, 2025 Subjective Review of Systems: CVS:Normal, RESPIRATORY:Normal, NEURO:Normal Objective vital signs Vital Sign Date Time Temp Pulse Resp B/P (MAP) Pulse Ox O2 Delivery O2 Flow Rate FiO2 01/26/25 04:59 97.2 53 19 102/59 (73) 95 97.2 01/25/25 20:00 Room Air* 0 21 Total Intake and Output 01/25/25 01/25/25 01/26/25 15:00 23:00 07:00 Intake Total 6 ml 600 ml Balance 6 ml 600 ml medications Current Medications Medications Dose Ordered Sig/Kiet Route Start Time Stop Time Status Last Admin Dose Admin Ondansetron HCl 4 mg Q4HP PRN IV 01/25/25 00:30 Acetaminophen 650 mg Q6HP PRN PO 01/25/25 00:30 Levothyroxine Sodium 50 mcg QAM@0600 PO 01/25/25 06:00 01/26/25 06:30 50 MCG Pantoprazole Sodium 40 mg DAILY PO 01/25/25 10:00 01/25/25 09:45 40 MG Heparin Sodium/ Dextrose 250 ml @ 8.388 mls/ hr Q24H IV 01/25/25 00:30 UNV Atorvastatin Calcium 40 mg HS PO 01/25/25 22:00 Aspirin 81 mg DAILY PO 01/25/25 10:00 01/25/25 09:45 81 MG Heparin Sodium/ Dextrose 250 ml @ 8 mls/hr Q24H IV 01/26/25 01:15 01/26/25 01:15 8 MLS/HR Examination: LUNGS:Normal, CVS:Normal, NEURO:Normal laboratory and microbiology Laboratory Tests 01/26/25 07:22 01/25/25 03:30 Test 01/25/25 03:30 Range/Units Serum Glucose 90 74-106 mg/dL Problem List/Assessment/Plan Problem List/Assessment/Plan Assessment 1. Myocardial infarction with non-obstructive coronaries (MINOCA) 2. De Paresh compensated HFrEF, NYHA Class II 3. Aortic insufficiency, moderate degree 4. Hypertension, uncontrolled. 5. Hyperlipidemia. 6. Hypothyroidism. 7. Emotional distress contributing to presentation. 8. 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 9. Pre-diabetes Plan (Dr. Pritchard) The patient underwent a left heart catheterization and coronary angiogram revealing normal coronaries and a ventriculography with LVEF at 40%. Transthoracic echocardiogram confirmed a LVEF of 40%. Continue single- antiplatelet therapy, lipid-lowering agent, and initiate GDMT for HFrEF including low-dose ACEI, mineralocorticoid, and SGLT2i. BB vs CCB held secondary to bradycardia. Repeat a TTE after three months of medical therapy for LV reassessment. Follow-up with a primary departure clerk within 3-4 weeks post- discharge. Counseled on supportive care and emotional support for grief-related distress. Always consider blood work post-procedure including a BMP. Kindly call with any questions or concerns or if in need of further recommendations. Thank you for allowing us to participate in this patient's care. This medical document was created using an electronic medical record system with voice recognition software and computerized dictation system. Although this document has been carefully reviewed, there might still be some phonetic and typographical errors. Occasional wrong-word or ``sound-alike substitutions may have occurred due to the inherent limitations of voice recognition software. These areas are purely typographical due to imperfections of the software programs and do not reflect any compromise in the patient's medical care. Please read the chart carefully and recognize, using context, where these substitutions have occurred. Plan discussed with: Patient, Other Date of Service: Jan 26, 2025 Billing Provider: PARKER BERRY Cardiology Common Codes: [id number] HOSP CARE(High PARKER BERRY Jan 26, 2025 09:15
[2025-01-26 09:33] LABS: Chloride 107 mmol/L (98-107); Potassium 4.8 mmol/L (3.5-5.1); Sodium 142 mmol/L (136-145)
[2025-01-26 09:34] LABS: Anion Gap 8 (5-15); Calcium 9.5 mg/dL (8.7-10.4); Carbon Dioxide 27 mmol/L (20-31)
[2025-01-26 09:39] LABS: BUN/Creatinine Ratio 9.8 (10.0-20.0)
[2025-01-26 09:40] LABS: Blood Urea Nitrogen 8 mg/dL (9-23); Glucose 106 mg/dL (74-106)
--- NOTE | 2025-01-26 09:50 | DVHSR ---
APPROVED REPORT EXAM: Two-dimensional and M-mode echocardiogram with Doppler and color Doppler. Blood Pressure: 120/62 mmHg INDICATION Syncope RISK FACTORS Height: 5'3", Weight: 158 DIMENSIONS LVDd 4.5 (3.8-5.7cm) LA (2D) 3.6 (1.9-4.0cm) Aortic Root (2.0-3.7cm) LVDs 3.4 (2.5-4.0cm) LA (MM) (1.9-4.0cm) Aortic Cusp Exc 1.4 (1.5-2.0cm) EF (%) 50.0 (55-70%) Rt. Atrium 2.7 (1.9-4.0cm) Asc. Aorta cm IVSd 0.6 (0.7-1.1cm) RV (D) (1.8-2.4cm) Mitral Valve Mitral Mitral Stenosis E wave 0.45m/s MV Mean GR. mmHg A wave 1.01m/s MV Peak GR. mmHg E/A ratio 0.4 2D MVA cm2 DECEL Time 318ms PRESS 1/2 Time ms Aortic Valve Aortic Valve Aortic Stenosis V1 1.04m/s AO Mean GR. 9mmHg V2 2.10m/s AO Peak GR. 18mmHg LVOT Diameter 1.9 (1.8-2.4cm) Doppler SIOMARA 1.40cm2 AI P 1/2 Time 429.29ms Tricuspid Valve TR Velocity 2.30m/s RVSP 24mmHg Other Information Quality : Technically Limited Rhythm : Technically limited study due to body habitus. Conclusion Good study sinus rhythm. Concentric LVH with mild LV enlargement. Left atrial enlargement. Valves are structurally normal. Left ventricular function is moderately diminished. EF is about 40% with global hypokinesis. Normal RV function. There is moderate aortic insufficiency. Mild tricuspid regurgitation. No pericardial effusion masses or vegetations noted.
[2025-01-26] MEDS: LISINOPRIL 5 MG TAB PO SCH (10:21)
--- NOTE | 2025-01-26 15:30 | DVHPNRES ---
Progress Note Date Seen: Jan 26, 2025 Resident Creating Document: ADIN DOLAN RESIDENT Medical Necessity Reason Pt with a Central, PICC or Fol: No Subjective Review of Systems Patient seen at bedside. No new complaints. Patient has bradycardia and mild hypotension. Cardiac catheterization showed no coronary artery disease, recommended treatment for HFrEF. 89-year-old female with a PMH of hypothyroidism, hyperlipidemia has come to the ER with chief complaints of dizziness. Patient reports that she was at [employer] sitting down today when she suddenly felt lightheaded, dizzy and like she would pass out. She reports she saw bright lights in her head began to hurt starting from the temporal region slowly moving back to the occiput and neck. She rates the pain as 4/10, dull, with no relieving or aggravating factors and has been constant throughout the day. She denies any nausea, vomiting, fever, chills, palpitations, chest pain or shortness of breath. On inquiry, she reports she has had a similar episode 3 months ago when she was in a convenience store and she drank water which helped back then. Today she also reports of feeling emotionally distressed as it is the day anniversary of her son who 7 years ago. Patient has also begun herbal medication 2 weeks ago for hyperlipidemia, but can not recall the names of it. On admission her blood pressure was 175/75, HR 53, temp 98.7, SpO2 97 in room air, RR 16. CT head and chest x-ray are normal, UA is negative and tropes are uptrending 71, 276. She denies any chest pain. PMH: Hypothyroidism, hyperlipidemia PSH: hysterectomy Family history: Reviewed, noncontributory to the management of this case Social history: Patient lives with . Denies smoking, alcohol or illicit drug abuse Allergies: None PCP: code status: Full code CONSTITUTIONAL: Fever, night sweats, weight loss, Lymphadenopathy, ecchymoses, fatigue: Negative DERMATOLOGIC: Rash, New/growing/changing skin lesions: Negative HEENT: Vision change, eye pain, Rhinorrhea, sinus pain, epistaxis, dysphagia, odynophagia, globus sensation, Change in hearing, tinnitus, vertigo, otalgia, Dental problems, oral ulcers or lesions: : Negative ENDOCRINE: Weight change, heat or cold intolerance, tremor, insomnia, neck pain or swelling, Polyuria, polydipsia, polyphagia, Abnormal hair growth, change in nails: Negative CARDIOVASCULAR: palpitations, syncope, Edema, cyanosis, claudication, Orthopnea, paroxysmal nocturnal dyspnea: Negative, Complains of chest pain and lightheadedness PULMONARY: Shortness of breath, dyspnea with exertion, Cough, hemoptysis, wheezing, chest pain : Negative GI: Nausea, vomiting, diarrhea, melena, hematochezia, Change in appetite, abdominal pain, change in bowel habits or stools: Negative : Dysuria, frequency, urgency, Urinary incontinence, hematuria, foamy urine, nocturia, Change in libido, erectile dysfunction, Change in menses, dysmenorrhea, dyspaerunia, pelvic pain: : Negative MUSCULOSKELETAL: Joint swelling or pain, muscle pain, back pain: : Negative NEUROLOGIC: Headache, scotoma, Change in smell or taste, change in facial muscles, Muscle weakness, paresthesias, anesthesia, Ataxia, change in speech: Negative PSYCHIATRIC: Depression, anxiety, hallucinations, jody, suicidal/homicidal thoughts, Binging, purging: Negative Objective vital signs Vital Sign Date Time Temp Pulse Resp B/P (MAP) Pulse Ox O2 Delivery O2 Flow Rate FiO2 01/26/25 10:21 121/60 01/26/25 08:00 49 01/26/25 08:00 16 Room Air* 0 21 01/26/25 04:59 97.2 95 97.2 Total Intake and Output 01/25/25 01/25/25 01/26/25 15:00 23:00 07:00 Intake Total 6 ml 600 ml Balance 6 ml 600 ml medications Current Medications Medications Dose Ordered Sig/Kiet Route Start Time Stop Time Status Last Admin Dose Admin Ondansetron HCl 4 mg Q4HP PRN IV 01/25/25 00:30 Acetaminophen 650 mg Q6HP PRN PO 01/25/25 00:30 Levothyroxine Sodium 50 mcg QAM@0600 PO 01/25/25 06:00 01/26/25 06:30 50 MCG Pantoprazole Sodium 40 mg DAILY PO 01/25/25 10:00 01/26/25 10:19 40 MG Heparin Sodium/ Dextrose 250 ml @ 8.388 mls/ hr Q24H IV 01/25/25 00:30 UNV Atorvastatin Calcium 40 mg HS PO 01/25/25 22:00 Aspirin 81 mg DAILY PO 01/25/25 10:00 01/26/25 10:19 81 MG Lisinopril 10 mg DAILY PO 01/26/25 10:00 01/26/25 10:21 10 MG Empaglifozin 10 mg DAILY PO 01/27/25 10:00 Spironolactone 12.5 mg DAILY PO 01/27/25 10:00 Examination General Appearance: Alert, Oriented X3, Cooperative, slightly emotionally distressed HEENT: Atraumatic, Mucous membranes moist/pink Respiratory: Clear to auscultation, Normal air movement, No added sounds Cardiovascular: Regular rate, Normal S1, Normal S2, No murmurs Abdominal: Active bowel sounds, Soft, no distention, no tenderness Extremities: No edema, Normal pulses, No tenderness/swelling Skin: No Significant rash, except past surgical scars Neuro: Normal speech, sensorimotor deficits none Psych/Mental Status: Mental status NL, Mood NL laboratory and microbiology Laboratory Tests 01/26/25 07:22 Test 01/26/25 07:22 Range/Units Serum Glucose 106 74-106 mg/dL Problem List/Assessment/Plan Problem List/Assessment/Plan Assessment and plan #Autonomic dysfunction #Presyncope - chest x-ray normal - head CT shows no acute intracranial abnormality - orthostatic vitals on: laying 134/47(HR 51), sitting 138/57(HR 59), standing 143/47(HR 57) - carotid Doppler - echo - IV ondansetron 4 mg q.4 PRN - acetaminophen 650 mg q.6 PRN #Hypothyroidism -continue home medication levothyroxine 50 mcg daily #Atrial flutter #NSTEMI , likely type 1 - Tropes up trending 71>276>1175>2189> 2717 - EKG shows atrial flutter - tele monitor - cardiology consult for up trending trops - pending oronary cath -As seen on EKG -aspirin 162 mg p.o. once and 81 mg daily -PT 10.4, INR 0.98, APTT 28.2 -IV heparin drip -cardiac catheterization showed no coronary artery disease -decreased left ventricular function # HFrEF -consider GDMT #Hyperlipidemia -atorvastatin 40 mg daily HS -stop herbal medication GI prophylaxis: Protonix 40 mg p.o. daily Diet: cardiac diet Goals of care discussed with the patient for more than 27 minutes: Full code status Case discussed with Plan discussed with: Patient Date of Service: Jan 26, 2025 Billing Provider: MANAS GAMING MD Common Visit Codes: [id number] INP/OBS CARE(HIGH) ADIN DOLAN RESIDENT Jan 26, 2025 15:30 MANAS GAMING MD Jan 28, 2025 16:42
[2025-01-27] VITALS (9 sets, daily range): BP systolic 100–137; BP diastolic 39–73; PULSE 45–60; RESP 17–18; TEMP 97.6–98.3; O2SAT 95–99
[2025-01-27] MEDS: ACETAMINOPHEN 325 MG TAB PO PRN (00:31)
[2025-01-27 06:13] LABS: Alanine Aminotransferase 11 U/L (7-40); Alkaline Phosphatase 64 U/L (46-116); Anion Gap 9 (5-15); BUN/Creatinine Ratio 15.5 (10.0-20.0); Blood Urea Nitrogen 13 mg/dL (9-23); Calcium 9.2 mg/dL (8.7-10.4); Carbon Dioxide 26 mmol/L (20-31); Chloride 104 mmol/L (98-107); Glucose 103 mg/dL (74-106); Potassium 3.9 mmol/L (3.5-5.1); Sodium 139 mmol/L (136-145); Total Protein 6.1 g/dL (5.7-8.2)
[2025-01-27 06:14] LABS: Albumin 3.9 g/dL (3.2-4.8); Bilirubin, Total 0.6 mg/dL (0.2-1.0)
[2025-01-27 08:44] LABS: Hematocrit 37.6 % (36.0-46.0); Hemoglobin 12.7 g/dL (12.2-16.2); Mean Corpuscular Hemoglobin 31.2 pg (28.0-32.0); Mean Corpuscular Volume 92.6 fL (80.0-100.0); Nucleated Red Blood Cells % 0.0 %
[2025-01-27] MEDS: EMPAGLIFLOZIN 10 MG TAB PO SCH (09:17)
[2025-01-27] MEDS: SPIRONOLACTONE 25 MG TAB PO SCH (09:21)
--- NOTE | 2025-01-27 14:20 | DVHPN2 ---
Consult Progress Note Date Seen: Jan 27, 2025 Subjective Review of Systems: CVS:Normal, RESPIRATORY:Normal, NEURO:Normal Other Systems: Notified by primary team on twelve lead ECGs on arrival revealing paroxysmal A-fib/a-flutter rhythm. Patient denies any cardiac symptoms Objective vital signs Vital Sign Date Time Temp Pulse Resp B/P (MAP) Pulse Ox O2 Delivery O2 Flow Rate FiO2 01/27/25 13:00 98.0 50 17 111/54 (73) 95 98.0 01/27/25 07:55 Room Air* 0 21 Total Intake and Output 01/26/25 01/26/25 01/27/25 15:00 23:00 07:00 Intake Total 72 ml 360 ml 700 ml Balance 72 ml 360 ml 700 ml medications Current Medications Medications Dose Ordered Sig/Kiet Route Start Time Stop Time Status Last Admin Dose Admin Ondansetron HCl 4 mg Q4HP PRN IV 01/25/25 00:30 Acetaminophen 650 mg Q6HP PRN PO 01/25/25 00:30 01/27/25 00:31 650 MG Levothyroxine Sodium 50 mcg QAM@0600 PO 01/25/25 06:00 01/27/25 05:57 50 MCG Pantoprazole Sodium 40 mg DAILY PO 01/25/25 10:00 01/27/25 09:20 40 MG Heparin Sodium/ Dextrose 250 ml @ 8.388 mls/ hr Q24H IV 01/25/25 00:30 UNV Atorvastatin Calcium 40 mg HS PO 01/25/25 22:00 01/26/25 21:33 40 MG Aspirin 81 mg DAILY PO 01/25/25 10:00 01/27/25 09:16 81 MG Lisinopril 10 mg DAILY PO 01/26/25 10:00 01/27/25 09:22 10 MG Empaglifozin 10 mg DAILY PO 01/27/25 10:00 01/27/25 09:17 10 MG Spironolactone 12.5 mg DAILY PO 01/27/25 10:00 01/27/25 09:21 12.5 MG Examination: LUNGS:Normal, CVS:Normal, NEURO:Normal laboratory and microbiology Laboratory Tests 01/27/25 04:43 Test 01/27/25 04:43 Range/Units Serum Glucose 103 74-106 mg/dL Problem List/Assessment/Plan Problem List/Assessment/Plan Assessment 1. Myocardial infarction with non-obstructive coronaries (MINOCA) 2. Paroxysmal atrial fibrillation/atrial flutter, Stage IIIa, now sinus bradycardia 3. De [place] compensated HFrEF, NYHA Class II 4. Aortic insufficiency, moderate degree 5. Hypertension, uncontrolled. 6. Hyperlipidemia. 7. Hypothyroidism. 8. Emotional distress contributing to presentation. 9. 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 10. Pre-diabetes * Cardiac catheterization and coronary angiogram revealed no coronary artery disease and decreased left ventricular function at about 40% * Transthoracic echocardiogram revealed LVEF 40% with global hypokinesis. Normal RV function. Concentric LVH with mild LV enlargement. Left atrial enlargement. There is moderate aortic insufficiency. Mild tricuspid regurgitation * Twelve lead electrocardiograms x5 revealed an initial atrial flutter rhythm with slow ventricular rate transitioning into a sinus rhythm and atrial fibrillation * pvc monitor reviewed: Currently sinus bradycardia rhythm in the 50s bpm * Troponin levels peaked at 2,700s ng/L Plan (Dr. Pritchard) The patient underwent a left heart catheterization and coronary angiogram revealing normal coronaries and a ventriculography with LVEF at 40%. Transthoracic echocardiogram confirmed a LVEF of 40%. Continue lipid-lowering agent and GDMT for HFrEF including low-dose ACEI, mineralocorticoid, and SGLT2i. BB held secondary to bradycardia. Initiate low-dose antiarrhythmic therapy with amiodarone 100 mg daily. [id number] Score 5 points, HAS-BLED Score 2 points. Initiate low-dose Eliquis therapy. Repeat a TTE after three months of medical therapy for LV reassessment. The patient can benefit from an outpatient event monitor vs loop recorder per primary shed hand discretion. Follow-up with a shed hand within 3-4 weeks post-discharge. Counseled on supportive care and emotional support for grief-related distress. Kindly call with any questions or concerns or if in need of further recommendations. Thank you for allowing us to participate in this patient's care. This medical document was created using an electronic medical record system with voice recognition software and computerized dictation system. Although this document has been carefully reviewed, there might still be some phonetic and typographical errors. Occasional wrong-word or ``sound-alike substitutions may have occurred due to the inherent limitations of voice recognition software. These areas are purely typographical due to imperfections of the software programs and do not reflect any compromise in the patient's medical care. Please read the chart carefully and recognize, using context, where these substitutions have occurred. Plan discussed with: Patient, Spouse, Other Date of Service: Jan 27, 2025 Billing Provider: PARKER BERRY Cardiology Common Codes: [id number] HOSP CARE(High PARKER BERRY Jan 27, 2025 14:19
--- NOTE | 2025-01-27 16:12 | DVHPNRES ---
Progress Note Date Seen: Jan 27, 2025 Resident Creating Document: ADIN DOLAN RESIDENT Medical Necessity Reason Pt with a Central, PICC or Fol: No Subjective Review of Systems Patient seen at bedside. no new complaints. Cardiology consulted again because of atrial flutter 89-year-old female with a PMH of hypothyroidism, hyperlipidemia has come to the ER with chief complaints of dizziness. Patient reports that she was at [employer] sitting down today when she suddenly felt lightheaded, dizzy and like she would pass out. She reports she saw bright lights in her head began to hurt starting from the temporal region slowly moving back to the occiput and neck. She rates the pain as 4/10, dull, with no relieving or aggravating factors and has been constant throughout the day. She denies any nausea, vomiting, fever, chills, palpitations, chest pain or shortness of breath. On inquiry, she reports she has had a similar episode 3 months ago when she was in a convenience store and she drank water which helped back then. Today she also reports of feeling emotionally distressed as it is the day anniversary of her son who 7 years ago. Patient has also begun herbal medication 2 weeks ago for hyperlipidemia, but can not recall the names of it. On admission her blood pressure was 175/75, HR 53, temp 98.7, SpO2 97 in room air, RR 16. CT head and chest x-ray are normal, UA is negative and tropes are uptrending 71, 276. She denies any chest pain. PMH: Hypothyroidism, hyperlipidemia PSH: hysterectomy Family history: Reviewed, noncontributory to the management of this case Social history: Patient lives with . Denies smoking, alcohol or illicit drug abuse Allergies: None PCP: code status: Full code CONSTITUTIONAL: Fever, night sweats, weight loss, Lymphadenopathy, ecchymoses, fatigue: Negative DERMATOLOGIC: Rash, New/growing/changing skin lesions: Negative HEENT: Vision change, eye pain, Rhinorrhea, sinus pain, epistaxis, dysphagia, odynophagia, globus sensation, Change in hearing, tinnitus, vertigo, otalgia, Dental problems, oral ulcers or lesions: : Negative ENDOCRINE: Weight change, heat or cold intolerance, tremor, insomnia, neck pain or swelling, Polyuria, polydipsia, polyphagia, Abnormal hair growth, change in nails: Negative CARDIOVASCULAR: palpitations, syncope, Edema, cyanosis, claudication, Orthopnea, paroxysmal nocturnal dyspnea: Negative, Complains of chest pain and lightheadedness PULMONARY: Shortness of breath, dyspnea with exertion, Cough, hemoptysis, wheezing, chest pain : Negative GI: Nausea, vomiting, diarrhea, melena, hematochezia, Change in appetite, abdominal pain, change in bowel habits or stools: Negative : Dysuria, frequency, urgency, Urinary incontinence, hematuria, foamy urine, nocturia, Change in libido, erectile dysfunction, Change in menses, dysmenorrhea, dyspaerunia, pelvic pain: : Negative MUSCULOSKELETAL: Joint swelling or pain, muscle pain, back pain: : Negative NEUROLOGIC: Headache, scotoma, Change in smell or taste, change in facial muscles, Muscle weakness, paresthesias, anesthesia, Ataxia, change in speech: Negative PSYCHIATRIC: Depression, anxiety, hallucinations, jody, suicidal/homicidal thoughts, Binging, purging: Negative Objective vital signs Vital Sign Date Time Temp Pulse Resp B/P (MAP) Pulse Ox O2 Delivery O2 Flow Rate FiO2 01/27/25 13:00 98.0 50 17 111/54 (73) 95 98.0 01/27/25 07:55 Room Air* 0 21 Total Intake and Output 01/26/25 01/26/25 01/27/25 15:00 23:00 07:00 Intake Total 72 ml 360 ml 700 ml Balance 72 ml 360 ml 700 ml medications Current Medications Medications Dose Ordered Sig/Kiet Route Start Time Stop Time Status Last Admin Dose Admin Ondansetron HCl 4 mg Q4HP PRN IV 01/25/25 00:30 Acetaminophen 650 mg Q6HP PRN PO 01/25/25 00:30 01/27/25 00:31 650 MG Levothyroxine Sodium 50 mcg QAM@0600 PO 01/25/25 06:00 01/27/25 05:57 50 MCG Pantoprazole Sodium 40 mg DAILY PO 01/25/25 10:00 01/27/25 09:20 40 MG Heparin Sodium/ Dextrose 250 ml @ 8.388 mls/ hr Q24H IV 01/25/25 00:30 UNV Atorvastatin Calcium 40 mg HS PO 01/25/25 22:00 01/26/25 21:33 40 MG Lisinopril 10 mg DAILY PO 01/26/25 10:00 01/27/25 09:22 10 MG Empaglifozin 10 mg DAILY PO 01/27/25 10:00 01/27/25 09:17 10 MG Spironolactone 12.5 mg DAILY PO 01/27/25 10:00 01/27/25 09:21 12.5 MG Amiodarone HCl 100 mg DAILY PO 01/28/25 10:00 Apixaban 2.5 mg BID PO 01/27/25 22:00 Examination General Appearance: Alert, Oriented X3, Cooperative, slightly emotionally distressed HEENT: Atraumatic, Mucous membranes moist/pink Respiratory: Clear to auscultation, Normal air movement, No added sounds Cardiovascular: Regular rate, Normal S1, Normal S2, No murmurs Abdominal: Active bowel sounds, Soft, no distention, no tenderness Extremities: No edema, Normal pulses, No tenderness/swelling Skin: No Significant rash, except past surgical scars Neuro: Normal speech, sensorimotor deficits none Psych/Mental Status: Mental status NL, Mood NL laboratory and microbiology Laboratory Tests 01/27/25 04:43 Test 01/27/25 04:43 Range/Units Serum Glucose 103 74-106 mg/dL Problem List/Assessment/Plan Problem List/Assessment/Plan Assessment and plan #Autonomic dysfunction #Presyncope - chest x-ray normal - head CT shows no acute intracranial abnormality - orthostatic vitals on: laying 134/47(HR 51), sitting 138/57(HR 59), standing 143/47(HR 57) - carotid Doppler - echo - IV ondansetron 4 mg q.4 PRN - acetaminophen 650 mg q.6 PRN #Hypothyroidism -continue home medication levothyroxine 50 mcg daily #Atrial flutter #NSTEMI , likely type 1 - stopped aspirin, started Eliquis - started amiodarone - Tropes up trending 71>276>1175>2189> 2717 - EKG shows atrial flutter - tele monitor - cardiology consult for up trending trops - pending oronary cath -As seen on EKG -PT 10.4, INR 0.98, APTT 28.2 -IV heparin drip -cardiac catheterization showed no coronary artery disease -decreased left ventricular function # HFrEF -consider GDMT #Hyperlipidemia -atorvastatin 40 mg daily HS -stop herbal medication GI prophylaxis: Protonix 40 mg p.o. daily Diet: cardiac diet Goals of care discussed with the patient for more than 27 minutes: Full code status Case discussed with Plan discussed with: Patient My Orders My Orders Orders - ADIN DOLAN Procedure Category Date Status Time Electrocardigram EKG 01/27/25 Logged 11:45 Complete Blood Count LAB 01/28/25 Verified 04:00 Comprehensive LAB 01/28/25 Verified Metabolic Panel 04:00 Electrocardigram EKG 01/27/25 Logged 14:00 Date of Service: Jan 27, 2025 Billing Provider: MANAS GAMING MD Common Visit Codes: [id number] INP/OBS CARE(HIGH) ADIN DOLAN Jan 27, 2025 16:12 MANAS GAMING MD Jan 28, 2025 16:43
[2025-01-27] MEDS: AMIODARONE HCL 200 MG TAB PO ONE (16:23)
[2025-01-27] MEDS: APIXABAN 2.5 MG TAB PO SCH (20:52)
[2025-01-28] VITALS (9 sets, daily range): BP systolic 118–130; BP diastolic 33–67; PULSE 50–57; RESP 18–20; TEMP 97.4–97.8; O2SAT 96–97
[2025-01-28 06:30] LABS: Hematocrit 36.9 % (36.0-46.0); Hemoglobin 12.7 g/dL (12.2-16.2); Mean Corpuscular Hemoglobin 31.9 pg (28.0-32.0); Mean Corpuscular Volume 92.5 fL (80.0-100.0); Nucleated Red Blood Cells % 0.0 %
[2025-01-28 06:41] LABS: Alanine Aminotransferase 19 U/L (7-40); Albumin 3.9 g/dL (3.2-4.8); Alkaline Phosphatase 63 U/L (46-116); Anion Gap 10 (5-15); BUN/Creatinine Ratio 16.5 (10.0-20.0); Bilirubin, Total 0.5 mg/dL (0.2-1.0); Blood Urea Nitrogen 14 mg/dL (9-23); Calcium 9.4 mg/dL (8.7-10.4); Carbon Dioxide 23 mmol/L (20-31); Chloride 108 mmol/L (98-107); Glucose 123 mg/dL (74-106); Potassium 3.8 mmol/L (3.5-5.1); Sodium 141 mmol/L (136-145); Total Protein 6.2 g/dL (5.7-8.2)
[2025-01-28] MEDS: AMIODARONE HCL 200 MG TAB PO SCH (10:33)
--- NOTE | 2025-01-28 14:56 | DVHPNRES ---
Progress Note Date Seen: Jan 28, 2025 Resident Creating Document: ADIN DOLAN RESIDENT Medical Necessity Reason Pt with a Central, PICC or Fol: No Subjective Review of Systems Patient seen at bedside. No new complaints. Cardiology advised to start on Eliquis and amiodarone. Might need event monitor. 89-year-old female with a PMH of hypothyroidism, hyperlipidemia has come to the ER with chief complaints of dizziness. Patient reports that she was at [employer] sitting down today when she suddenly felt lightheaded, dizzy and like she would pass out. She reports she saw bright lights in her head began to hurt starting from the temporal region slowly moving back to the occiput and neck. She rates the pain as 4/10, dull, with no relieving or aggravating factors and has been constant throughout the day. She denies any nausea, vomiting, fever, chills, palpitations, chest pain or shortness of breath. On inquiry, she reports she has had a similar episode 3 months ago when she was in a convenience store and she drank water which helped back then. Today she also reports of feeling emotionally distressed as it is the day anniversary of her son who 7 years ago. Patient has also begun herbal medication 2 weeks ago for hyperlipidemia, but can not recall the names of it. On admission her blood pressure was 175/75, HR 53, temp 98.7, SpO2 97 in room air, RR 16. CT head and chest x-ray are normal, UA is negative and tropes are uptrending 71, 276. She denies any chest pain. PMH: Hypothyroidism, hyperlipidemia PSH: hysterectomy Family history: Reviewed, noncontributory to the management of this case Social history: Patient lives with . Denies smoking, alcohol or illicit drug abuse Allergies: None PCP: code status: Full code CONSTITUTIONAL: Fever, night sweats, weight loss, Lymphadenopathy, ecchymoses, fatigue: Negative DERMATOLOGIC: Rash, New/growing/changing skin lesions: Negative HEENT: Vision change, eye pain, Rhinorrhea, sinus pain, epistaxis, dysphagia, odynophagia, globus sensation, Change in hearing, tinnitus, vertigo, otalgia, Dental problems, oral ulcers or lesions: : Negative ENDOCRINE: Weight change, heat or cold intolerance, tremor, insomnia, neck pain or swelling, Polyuria, polydipsia, polyphagia, Abnormal hair growth, change in nails: Negative CARDIOVASCULAR: palpitations, syncope, Edema, cyanosis, claudication, Orthopnea, paroxysmal nocturnal dyspnea: Negative, Complains of chest pain and lightheadedness PULMONARY: Shortness of breath, dyspnea with exertion, Cough, hemoptysis, wheezing, chest pain : Negative GI: Nausea, vomiting, diarrhea, melena, hematochezia, Change in appetite, abdominal pain, change in bowel habits or stools: Negative : Dysuria, frequency, urgency, Urinary incontinence, hematuria, foamy urine, nocturia, Change in libido, erectile dysfunction, Change in menses, dysmenorrhea, dyspaerunia, pelvic pain: : Negative MUSCULOSKELETAL: Joint swelling or pain, muscle pain, back pain: : Negative NEUROLOGIC: Headache, scotoma, Change in smell or taste, change in facial muscles, Muscle weakness, paresthesias, anesthesia, Ataxia, change in speech: Negative PSYCHIATRIC: Depression, anxiety, hallucinations, jody, suicidal/homicidal thoughts, Binging, purging: Negative Objective vital signs Vital Sign Date Time Temp Pulse Resp B/P (MAP) Pulse Ox O2 Delivery O2 Flow Rate FiO2 01/28/25 12:33 125/55 (78) 01/28/25 12:20 97.8 51 20 97 97.8 01/28/25 08:00 Room Air* 0 21 Total Intake and Output 01/27/25 01/27/25 01/28/25 14:59 22:59 06:59 Intake Total 480 ml 400 ml Balance 480 ml 400 ml medications Current Medications Medications Dose Ordered Sig/Kiet Route Start Time Stop Time Status Last Admin Dose Admin Ondansetron HCl 4 mg Q4HP PRN IV 01/25/25 00:30 Acetaminophen 650 mg Q6HP PRN PO 01/25/25 00:30 01/27/25 00:31 650 MG Levothyroxine Sodium 50 mcg QAM@0600 PO 01/25/25 06:00 01/28/25 05:33 50 MCG Pantoprazole Sodium 40 mg DAILY PO 01/25/25 10:00 01/28/25 10:33 40 MG Heparin Sodium/ Dextrose 250 ml @ 8.388 mls/ hr Q24H IV 01/25/25 00:30 UNV Atorvastatin Calcium 40 mg HS PO 01/25/25 22:00 01/27/25 20:53 40 MG Lisinopril 10 mg DAILY PO 01/26/25 10:00 01/27/25 09:22 10 MG Empaglifozin 10 mg DAILY PO 01/27/25 10:00 01/28/25 10:33 10 MG Spironolactone 12.5 mg DAILY PO 01/27/25 10:00 01/27/25 09:21 12.5 MG Amiodarone HCl 100 mg DAILY PO 01/28/25 10:00 01/28/25 10:33 100 MG Apixaban 2.5 mg BID PO 01/27/25 22:00 01/28/25 10:33 2.5 MG Examination General Appearance: Alert, Oriented X3, Cooperative, slightly emotionally distressed HEENT: Atraumatic, Mucous membranes moist/pink Respiratory: Clear to auscultation, Normal air movement, No added sounds Cardiovascular: Regular rate, Normal S1, Normal S2, No murmurs Abdominal: Active bowel sounds, Soft, no distention, no tenderness Extremities: No edema, Normal pulses, No tenderness/swelling Skin: No Significant rash, except past surgical scars Neuro: Normal speech, sensorimotor deficits none Psych/Mental Status: Mental status NL, Mood NL laboratory and microbiology Laboratory Tests 01/28/25 05:34 Test 01/28/25 05:34 Range/Units Serum Glucose 123 H 74-106 mg/dL Problem List/Assessment/Plan Problem List/Assessment/Plan Assessment and plan #Autonomic dysfunction #Presyncope - chest x-ray normal - head CT shows no acute intracranial abnormality - orthostatic vitals on: laying 134/47(HR 51), sitting 138/57(HR 59), standing 143/47(HR 57) - carotid Doppler - echo - IV ondansetron 4 mg q.4 PRN - acetaminophen 650 mg q.6 PRN #Hypothyroidism -continue home medication levothyroxine 50 mcg daily #Atrial flutter #NSTEMI , likely type 1 #MINOCA - stopped aspirin, started Eliquis - started amiodarone - Tropes up trending 71>276>1175>2189> 2717 - EKG shows atrial flutter - tele monitor - cardiology consult for up trending trops - pending oronary cath -As seen on EKG -PT 10.4, INR 0.98, APTT 28.2 -IV heparin drip -cardiac catheterization showed no coronary artery disease -decreased left ventricular function # HFrEF -consider GDMT #Hyperlipidemia -atorvastatin 40 mg daily HS -stop herbal medication GI prophylaxis: Protonix 40 mg p.o. daily Diet: cardiac diet Goals of care discussed with the patient for more than 27 minutes: Full code status Case discussed with Plan discussed with: Patient My Orders My Orders Orders - ADIN DOLAN Procedure Category Date Status Time Complete Blood Count LAB 01/29/25 Verified 04:00 Comprehensive LAB 01/29/25 Verified Metabolic Panel 04:00 Date of Service: Jan 28, 2025 Billing Provider: MANAS GAMING MD Common Visit Codes: [id number] INP/OBS CARE(HIGH) ADIN DOLAN Jan 28, 2025 14:56 MANAS GAMING MD Jan 28, 2025 16:43
[2025-01-28] MEDS ORDERED: ACETAMINOPHEN 325 MG TAB PO PRN ×3 (17:15→19:15)
[2025-01-29] VITALS (9 sets, daily range): BP systolic 112–143; BP diastolic 34–64; PULSE 44–62; RESP 18–20; TEMP 97.4–98.6; O2SAT 92–98
[2025-01-29 04:45] LABS: Hematocrit 37.1 % (36.0-46.0); Hemoglobin 12.8 g/dL (12.2-16.2); Mean Corpuscular Hemoglobin 31.8 pg (28.0-32.0); Mean Corpuscular Volume 92.1 fL (80.0-100.0); Nucleated Red Blood Cells % 0.0 %
[2025-01-29 05:00] LABS: Alanine Aminotransferase 31 U/L (7-40); Albumin 4.1 g/dL (3.2-4.8); Alkaline Phosphatase 71 U/L (46-116); BUN/Creatinine Ratio 16.9 (10.0-20.0); Blood Urea Nitrogen 15 mg/dL (9-23); Calcium 9.5 mg/dL (8.7-10.4); Carbon Dioxide 25 mmol/L (20-31); Glucose 102 mg/dL (74-106); Potassium 4.2 mmol/L (3.5-5.1); Sodium 139 mmol/L (136-145); Total Protein 6.6 g/dL (5.7-8.2)
[2025-01-29 05:01] LABS: Bilirubin, Total 0.6 mg/dL (0.2-1.0)
[2025-01-29 06:49] LABS: Anion Gap -4 (5-15); Chloride 118 mmol/L (98-107)
--- NOTE | 2025-01-29 09:16 | ECG ---
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
--- NOTE | 2025-01-29 09:16 | ECG ---
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
--- NOTE | 2025-01-29 10:17 | DVHPNRES ---
Progress Note Date Seen: Jan 29, 2025 Resident Creating Document: HORACIO LEIVA RESIDENT Medical Necessity Reason Pt with a Central, PICC or Fol: No Subjective Review of Systems Patient seen and examined at bedside Notes feeling better than yesterday, however continues feeling drowsy and weak Tele monitor reviewed, continues to have episodes of atrial fibrillation with bradycardia, lowest heart rate recorded 39 Out of bed and up to chair Objective vital signs Vital Sign Date Time Temp Pulse Resp B/P (MAP) Pulse Ox O2 Delivery O2 Flow Rate FiO2 01/29/25 08:46 98.1 48 20 122/34 (63) 97 98.1 01/28/25 20:00 Room Air* 0 21 Total Intake and Output 01/28/25 01/28/25 01/29/25 15:00 23:00 07:00 Intake Total 350 ml 200 ml Balance 350 ml 200 ml medications Current Medications Medications Dose Ordered Sig/Kiet Route Start Time Stop Time Status Last Admin Dose Admin Ondansetron HCl 4 mg Q4HP PRN IV 01/25/25 00:30 Levothyroxine Sodium 50 mcg QAM@0600 PO 01/25/25 06:00 01/29/25 05:38 50 MCG Pantoprazole Sodium 40 mg DAILY PO 01/25/25 10:00 01/29/25 09:33 40 MG Heparin Sodium/ Dextrose 250 ml @ 8.388 mls/ hr Q24H IV 01/25/25 00:30 UNV Atorvastatin Calcium 40 mg HS PO 01/25/25 22:00 01/28/25 20:59 40 MG Lisinopril 10 mg DAILY PO 01/26/25 10:00 01/27/25 09:22 10 MG Empaglifozin 10 mg DAILY PO 01/27/25 10:00 01/29/25 09:33 10 MG Spironolactone 12.5 mg DAILY PO 01/27/25 10:00 01/27/25 09:21 12.5 MG Amiodarone HCl 100 mg DAILY PO 01/28/25 10:00 01/29/25 09:33 100 MG Apixaban 2.5 mg BID PO 01/27/25 22:00 01/29/25 09:33 2.5 MG Acetaminophen 650 mg Q6HP PRN PO 01/28/25 19:15 Examination General Appearance: Alert, Oriented X3, Cooperative, slightly emotionally distressed HEENT: Atraumatic, Mucous membranes moist/pink Respiratory: Clear to auscultation, Normal air movement, No added sounds Cardiovascular: Regular rate, Normal S1, Normal S2, No murmurs Abdominal: Active bowel sounds, Soft, no distention, no tenderness Extremities: No edema, Normal pulses, No tenderness/swelling Skin: No Significant rash, except past surgical scars Neuro: Normal speech, sensorimotor deficits none Psych/Mental Status: Mental status NL, Mood NL laboratory and microbiology Laboratory Tests 01/29/25 04:03 Test 01/29/25 04:03 Range/Units Serum Glucose 102 74-106 mg/dL Labs and/or images reviewed: Labs reviewed by me, Image(s) reviewed by me Problem List/Assessment/Plan Problem List/Assessment/Plan #Autonomic dysfunction #Presyncope - chest x-ray normal - head CT shows no acute intracranial abnormality - orthostatic vitals on: laying 134/47(HR 51), sitting 138/57(HR 59), standing 143/47(HR 57) - carotid Doppler - echo - IV ondansetron 4 mg q.4 PRN - acetaminophen 650 mg q.6 PRN #Hypothyroidism -continue home medication levothyroxine 50 mcg daily #Atrial flutter #NSTEMI , likely type 1 #MINOCA # symptomatic bradycardia - stopped aspirin, started Eliquis - started amiodarone - Tropes up trending 71>276>1175>2189> 2717 - EKG shows atrial flutter - tele monitor - cardiology consult for up trending trops - pending oronary cath -As seen on EKG -PT 10.4, INR 0.98, APTT 28.2 -IV heparin drip -cardiac catheterization showed no coronary artery disease -decreased left ventricular function # HFrEF -consider GDMT #Hyperlipidemia -atorvastatin 40 mg daily HS -stop herbal medication GI prophylaxis: Protonix 40 mg p.o. daily Diet: cardiac diet Goals of care discussed with the patient for more than 27 minutes: Full code status Case discussed with Plan discussed with: Patient, Spouse, Other (RN) Date of Service: Jan 29, 2025 Billing Provider: MANAS GAMING MD Common Visit Codes: [id number] INP/OBS CARE(HIGH) HORACIO LEIVA Jan 29, 2025 10:17 MANAS GAMING MD Jan 29, 2025 15:41
[2025-01-30] VITALS (7 sets, daily range): BP systolic 105–130; BP diastolic 35–66; PULSE 40–55; RESP 15–18; TEMP 97.5–98.1; O2SAT 94–99
[2025-01-30 05:21] LABS: Hematocrit 37.1 % (36.0-46.0); Hemoglobin 13.0 g/dL (12.2-16.2); Mean Corpuscular Hemoglobin 32.1 pg (28.0-32.0); Mean Corpuscular Volume 92.0 fL (80.0-100.0); Nucleated Red Blood Cells % 0.0 %
[2025-01-30 05:30] LABS: Chloride 105 mmol/L (98-107); Potassium 4.0 mmol/L (3.5-5.1); Sodium 140 mmol/L (136-145)
[2025-01-30 05:31] LABS: Anion Gap 10 (5-15); Calcium 9.7 mg/dL (8.7-10.4); Carbon Dioxide 25 mmol/L (20-31)
[2025-01-30 05:34] LABS: INR 1.03 (0.9-1.15); Partial Thromboplastin Time 27.3 SEC (24.5-34.5); Prothrombin Time 10.9 sec (9.3-11.8)
[2025-01-30 05:36] LABS: BUN/Creatinine Ratio 17.4 (10.0-20.0); Blood Urea Nitrogen 15 mg/dL (9-23); Glucose 100 mg/dL (74-106)
[2025-01-30] MEDS ORDERED: LISI-275 PO (13:17)
[2025-01-30] MEDS ORDERED: SPIR25TA PO ×2 (13:17→16:20)
[2025-01-30] MEDS ORDERED: PANT40T PO ×2 (13:17→16:20)
[2025-01-30] MEDS ORDERED: ATOR20TA50 PO ×2 (13:17→16:20)
[2025-01-30] MEDS ORDERED: AMIO200T13 PO ×2 (13:17→16:20)
[2025-01-30] MEDS ORDERED: EMPA1TAB PO ×2 (13:17→16:20)
[2025-01-30] MEDS ORDERED: APIX2.5T PO ×2 (13:17→16:20)
--- NOTE | 2025-01-30 14:56 | DVHDSRES ---
Discharge Summary Date of Admission Resident Creating Document: HORACIO LEIVA RESIDENT Jan 25, 2025 at 00:18 Date of Discharge: Jan 30, 2025 Labs/Diagnostic Data: Laboratory Results Test 01/30/25 04:54 01/29/25 04:03 01/27/25 14:59 01/25/25 08:36 White Blood Count 8.2 10^3/uL (4.4-10.8) Red Blood Count 4.03 10^6/uL (4.0-5.20) Hemoglobin 13.0 g/dL (12.2-16.2) Hematocrit 37.1 % (36.0-46.0) Mean Corpuscular Volume 92.0 fL (80.0-100.0) Mean Corpuscular Hemoglobin 32.1 pg (28.0-32.0) Mean Corpuscular Hemoglobin Concent 34.9 g/dL (32.0-36.0) Red Cell Distribution Width 13.0 % (11.8-14.3) Platelet Count 154 10^3/uL (140-450) Mean Platelet Volume 9.4 fL (6.9-10.8) Neutrophils (%) (Auto) 68.9 % (37.0-80.0) Lymphocytes (%) (Auto) 20.7 % (10.0-50.0) Monocytes (%) (Auto) 6.2 % (0.0-12.0) Eosinophils (%) (Auto) 3.5 % (0.0-7.0) Basophils (%) (Auto) 0.7 % (0.0-2.0) Neutrophils # (Auto) 5.7 10 ^3/uL (1.6-8.6) Lymphocytes # (Auto) 1.7 10 ^3/uL (0.4-5.4) Monocytes # (Auto) 0.5 10 ^3/uL (0-1.3) Eosinophils # (Auto) 0.3 10 ^3/uL (0-0.8) Basophils # (Auto) 0.1 10 ^3/uL (0-0.2) Nucleated Red Blood Cells 0.0 % Prothrombin Time 10.9 sec (9.3-11.8) Prothrombin Time INR 1.03 (0.9-1.15) Activated Partial Thromboplast Time 27.3 SEC (24.5-34.5) Sodium Level 140 mmol/L (136-145) Potassium Level 4.0 mmol/L (3.5-5.1) Chloride Level 105 mmol/L (98-107) Carbon Dioxide Level 25 mmol/L (20-31) Anion Gap 10 (5-15) Blood Urea Nitrogen 15 mg/dL (9-23) Creatinine 0.86 mg/dL (0.550-1.02) Glomerular Filtration Rate Calc 65 mL/min (>90) BUN/Creatinine Ratio 17.4 (10.0-20.0) Serum Glucose 100 mg/dL (74-106) Calcium Level 9.7 mg/dL (8.7-10.4) Total Bilirubin 0.6 mg/dL (0.2-1.0) Aspartate Amino Transferase (AST) 42 U/L (13-40) Alanine Aminotransferase (ALT) 31 U/L (7-40) Alkaline Phosphatase 71 U/L (46-116) Total Protein 6.6 g/dL (5.7-8.2) Albumin 4.1 g/dL (3.2-4.8) Troponin I High Sensitivity 838 ng/L (</=34) Hemoglobin A1c 5.9 % A1C (<5.7) Triglycerides Level 107 mg/dL (< 150) Cholesterol Level 205 mg/dL (< 200) LDL Cholesterol 131 mg/dL (< 100) HDL Cholesterol 65 mg/dL (40-59) Thyroid Stimulating Hormone (TSH) 2.38 uIU/mL (0.55-4.78) Test 01/24/25 21:55 01/24/25 21:53 Urine Color Colorless (Yellow) Urine Clarity Clear (Clear) Urine pH 6.0 (5.0-9.0) Urine Specific [place] 1.006 (1.001-1.035) Urine Protein Negative (Negative) Urine Ketones Negative (Negative) Urine Blood Negative /uL (Negative) Urine Nitrite Negative (Negative) Urine Bilirubin Negative (Negative) Urine Urobilinogen Normal mg/dL (Negative) Urine Leukocyte Esterase Negative /uL (Negative) Urine RBC None seen /hpf (0 - 4) Urine Microscopic WBC < 1 /HPF (0-5) Urine Squamous Epithelial Cells Few /hpf (<5) Urine Bacteria None seen /hpf (None Seen) Urine Glucose Normal mg/dL (Normal) Magnesium Level 2.2 mg/dL (1.6-2.6) B-Type Natriuretic Peptide 21.84 pg/mL (0-100) Other Laboratory Tests 01/30/25 04:54 Brief Hx & Hospital Course: 89-year-old female with a PMH of hypothyroidism, hyperlipidemia came to the ER with chief complaints of dizziness. Patient reported that she was at [employer] sitting down today when she suddenly felt lightheaded, dizzy and like she would pass out. She reported she saw bright lights in her head began to hurt starting from the temporal region slowly moving back to the occiput and neck. She rated the pain as 4/10, dull, with no relieving or aggravating factors and has been constant throughout the day. She denied any nausea, vomiting, fever, chills, palpitations, chest pain or shortness of breath. On inquiry, she reported she has had a similar episode 3 months ago when she was in a convenience store and she drank water which helped back then. she also reported of feeling emotionally distressed as it was the day anniversary of her son who 7 years ago. Patient had also begun herbal medication 2 weeks ago for hyperlipidemia, but can not recall the names of it. On admission her blood pressure was 175/75, HR 53, temp 98.7, SpO2 97 in room air, RR 16. Troponins were elevated, coronary catheterization revealed no clots. Carotid Doppler revealed no significant stenosis. Head CT revealed no acute intracranial abnormality. Chest x-ray was unremarkable. Echo revealed Concentric LVH with mild LV enlargement, Left atrial enlargement, Left ventricular function is moderately diminished, EF is about 40% with global hypokinesis, There was moderate aortic insufficiency and Mild tricuspid regurgitation. Cardiology consult was given. Atrial flutter was diagnosed. Patient was started on amiodarone and Eliquis and advised to follow up with Cardiology as outpatient. Condition at Discharge: Good Final Diagnosis/Problems List #Autonomic dysfunction #Presyncope due to above #Hypothyroidism #Atrial flutter #NSTEMI , likely type 1 #MINOCA #HFrEF #Hyperlipidemia Discharge Disposition: Home Discharge Instruct/Medications Diet: Cardiac 2g Na,low cholest Activity: No Restrictions, As Tolerated Follow Up/Referral: F/u with Pcp in 7 days F/u with cardiology for event monitor Medications: as per EHR Scheduled Amiodarone HCl (Amiodarone HCl), 100 MG PO DAILY Apixaban Base (Eliquis), 2.5 MG PO BID Atorvastatin Calcium (Atorvastatin Calcium), 40 MG PO HS Empagliflozin (Jardiance), 10 MG PO DAILY Levothyroxine Sodium (Synthroid), 1 TAB PO DAILY, (Reported) Lisinopril (Lisinopril), 10 MG PO DAILY Pantoprazole Sodium Sesquihydr (Pantoprazole Sodium), 40 MG PO DAILY Spironolactone (Aldactone), 12.5 MG PO DAILY Miscellaneous Medications Lansoprazole (Lansoprazole), 15 MG PO, (Reported) Discharge Statement: "Patient was advised to return to the ER or call 911 if any headaches, dizziness, shortness of breath, chest pain, abdominal pain, bleeding, fevers, or worsening of medical condition. Patient was counseled about treatment plan, medications, possible side effects, patientverbalized understanding. All questions were answered to the best of my ability. This discharge took greater then 30 minutes in planning, reviewing documentation, counseling the patient, and discussing with other team members." ASSESSMENT ASSESSMENT Assessment ATRIAL FLUTTER Date of Service: Jan 30, 2025 Billing Provider: RANDEE PRINCE MD Common Visit Codes: [id number] DISCH DAY >30min ADIN DOLAN RESIDENT Jan 30, 2025 14:56 RANDEE PRINCE MD Jan 30, 2025 18:09
[2025-01-30 18:27] LABS: Urine Budding Yeast OCCASIONAL /hpf (None Seen); Urine Protein, UAD Negative (Negative)
[2025-01-31 01:00] VITALS: BP 120/47; PULSE 49; RESP 17; TEMP 97.8; O2SAT 96
[2025-01-31 05:00] VITALS: BP 103/50; PULSE 46; RESP 17; TEMP 97.9; O2SAT 94
[2025-01-31 08:00] VITALS: PULSE 47
[2025-01-31 09:00] VITALS: BP 106/60; PULSE 60; RESP 16; TEMP 98.6; O2SAT 94
[2025-01-31] MEDS: LISINOPRIL 5 MG TAB PO SCH (09:54)
[2025-01-31] MEDS ORDERED: LISI-275 PO (10:20)
[2025-01-31 13:00] VITALS: BP 101/68; PULSE 51; RESP 18; TEMP 97.8; O2SAT 97
== END 2025-01-31 14:20 | disposition home or self-care (01) | DRG 280 ==
LOC: EDBD 20:53 → ER 20:53 → OVERFLOW 01-25 00:18 → TELE-EAST 01-25 02:31
PROVIDERS: ADMIT Internal Medicine; ATTEND Internal Medicine
PROC: 4A023N7 Measurement of Cardiac Sampling and Pressure, Left Heart, Percutaneous Approach (ICD-10-PCS; principal; 2025-01-25)
PROC: B211YZZ Fluoroscopy of Multiple Coronary Arteries using Other Contrast (ICD-10-PCS; 2025-01-25)
PROC: B215YZZ Fluoroscopy of Left Heart using Other Contrast (ICD-10-PCS; 2025-01-25)
DX: I21.4 Non-ST elevation (NSTEMI) myocardial infarction (principal); I50.21 Acute systolic (congestive) heart failure; I48.92 Unspecified atrial flutter; G90.89 Other disorders of autonomic nervous system; I11.0 Hypertensive heart disease with heart failure; E03.9 Hypothyroidism, unspecified; I08.2 Rheumatic disorders of both aortic and tricuspid valves; I21.B Myocardial infarction with coronary microvascular dysfunction; R73.03 Prediabetes; E78.5 Hyperlipidemia, unspecified; Z90.710 Acquired absence of both cervix and uterus; Z86.73 Personal history of transient ischemic attack (TIA), and cerebral infarction without residual deficits; Z79.899 Other long term (current) drug therapy
CPT/HCPCS: 36415; 70450; 71045; 80048; 80053; 80061; 81001; 83036; 83735; 83880; 84443; 84484; 85025; 85610; 85730; 87086; 93005; 93306; 93458; 93886; 97110; 97116; 97163; 97530; 99152; 99291; G0378; J2250; Q9967